=== PATIENT | male | born 1930 | race Caucasian/White ===

== ENCOUNTER 2017-02-07 10:13 | Inpatient (IN) | payer OTHER, BC ==
[2017-02-07 10:21] VITALS: BMI 20.3
[2017-02-07] MEDS ORDERED: ONDANSETRON 4 MG/2 ML VIAL IVPUSH ONE (11:20)
[2017-02-07] MEDS ORDERED: SODIUM CHLORIDE 1,000 ML IV STA ×2 (11:20→13:01)
[2017-02-07] MEDS ORDERED: FAMOTIDINE 20 MG/50 ML IVPB 50 ML IVPB ONE ×2 (11:20→11:27)
--- NOTE | 2017-02-07 11:20 | PDOC ---
History of Present Illness - General History Source: Patient Exam Limitations: No Limitations - History of Present Illness Initial Comments: 02/07/17 11:22 The patient is an 86-year-old man, accompanied by his daughter, with a significant past medical history of hypertension, hypercholesterolemia chronic GI issues including intermittent flare ups of nausea/vomiting syndrome since 2009 (had a normal endocsocpy in the past and colonoscopy that only revealed diverticulosis) who presents to the emergency department via walk in for persistent nausea and vomiting. Patient states that he has been unable to tolerate any foods by mouth for the past 2 days. He reports associated symptoms of intermittent abdominal pains and nausea. Patient states that he experienced this in the past (Aug 2015) where he was found to have a normal Abdominal/ Pelvis CT but was found to have an elevated lipase and was admitted for pancreatitis. No fever, chills, weakness. No chest pain, cough, shortness of breath. No changes in bowel habits. No urinary complaints. Allergies: No Known Drug Allergies Past Surgical History: Colonoscopy. Endoscopy. Social History: No tobacco, EtOH and recreational drug use. Primary Care Physician: Dr. Rudd [facility]. Dr. Carlos Evans <Jeanna Archer - Last Filed: 02/07/17 13:07> <Nallely Rivero - Last Filed: 02/07/17 16:02> - General Chief Complaint: Nausea/Vomiting Stated Complaint: VOMITING Time Seen by Provider: 02/07/17 10:58 Past History <Jeanna Archer - Last Filed: 02/07/17 13:07> - Past Medical History GI Disorders: Yes (DIVERTICULOSIS, FREQUENT N/V) HTN: Yes Hypercholesterolemia: Yes - Surgical History Abdominal Surgery: Yes (lt ing HERNIA REPAIR) Orthopedic Surgery: (2004 right ankle sx with screws) - Psycho/Social/Smoking Cessation Hx Anxiety: No Suicidal Ideation: No Smoking History: Never smoked Have you smoked in the past 12 months: No Information on smoking cessation initiated: No Hx Alcohol Use: No Drug/Substance Use Hx: No Substance Use Type: None Hx Substance Use Treatment: No <Nallely Rivero - Last Filed: 02/07/17 16:02> - Past Medical History Allergies/Adverse Reactions: Allergies Allergy/AdvReac Type Severity Reaction Status Date / Time No Known Allergies Allergy Verified 02/07/17 10:17 Home Medications: Ambulatory Orders Atenolol [Tenormin -] 50 mg PO DAILY 08/30/15 Cholecalciferol (Vitamin D3) [Vitamin D3] 1,000 unit PO DAILY 08/30/15 Cyanocobalamin (Vitamin B-12) [Vitamin B12] 1,000 mcg PO DAILY 08/30/15 Multivit-Min/FA/Lycopen/Lutein [Centrum Silver Tablet] 1 each PO DAILY 08/30/15 Quinapril HCl [Accupril -] 10 mg PO DAILY 08/30/15 Simvastatin [Zocor -] 20 mg PO HS 08/30/15 Ranitidine [Zantac -] 150 mg PO DAILY #30 tablet 09/04/15 Review of Systems - Review of Systems Able to Perform ROS?: Yes Comments:: 02/07/17 11:22 GENERAL/CONSTITUTIONAL: No fever or chills. No weakness. HEAD, EYES, EARS, NOSE AND THROAT: No change in vision. No ear pain or discharge. No sore throat. CARDIOVASCULAR: No chest pain or shortness of breath. RESPIRATORY: No cough, wheezing, or hemoptysis. GASTROINTESTINAL: Yes: Abdominal Pain. Nausea. Vomiting. No diarrhea or constipation. GENITOURINARY: No dysuria, frequency, or change in urination. MUSCULOSKELETAL: No joint or muscle swelling or pain. No neck or back pain. SKIN: No rash NEUROLOGIC: No headache, vertigo, loss of consciousness, or change in strength/ sensation. ENDOCRINE: No increased thirst. No abnormal weight change. HEMATOLOGIC/LYMPHATIC: No anemia, easy bleeding, or history of blood clots. ALLERGIC/IMMUNOLOGIC: No hives or skin allergy. <Jeanna Archer - Last Filed: 02/07/17 13:07> *Physical Exam - Vital Signs Last Vital Signs Temp Pulse Resp BP Pulse Ox 97.2 F L 73 18 101/60 100 02/07/17 10:18 02/07/17 10:18 02/07/17 10:18 02/07/17 10:18 02/07/17 10:18 - Physical Exam Comments: 02/07/17 11:23 GENERAL: Awake, alert, and fully oriented, in no acute distress HEAD: No signs of trauma EYES: PERRLA, EOMI, sclera anicteric, conjunctiva clear ENT: Auricles normal inspection, hearing grossly normal, nares patent, oropharynx clear without exudates. Dry mucosa NECK: Normal ROM, supple, no lymphadenopathy, JVD, or masses LUNGS: Breath sounds equal, clear to auscultation bilaterally. No wheezes, and no crackles HEART: Regular rate and rhythm, normal S1 and S2, no murmurs, rubs or gallops ABDOMEN: Soft, nontender, hyperactive bowel sounds. No guarding, no rebound. No masses EXTREMITIES: Normal range of motion, no edema. No clubbing or cyanosis. No cords, erythema, or tenderness NEUROLOGICAL: Cranial nerves II through XII grossly intact. Normal speech, normal gait <Jeanna Archer - Last Filed: 02/07/17 13:07> - Vital Signs Last Vital Signs Temp Pulse Resp BP Pulse Ox 97.2 F L 73 18 101/60 100 02/07/17 10:18 02/07/17 10:18 02/07/17 10:18 02/07/17 10:18 02/07/17 10:18 <Nallely Rivero - Last Filed: 02/07/17 16:02> ED Treatment Course - LABORATORY CBC & Chemistry Diagram: 02/07/17 11:20 02/07/17 11:20 <Jeanna Archer - Last Filed: 02/07/17 13:07> - LABORATORY CBC & Chemistry Diagram: 02/07/17 11:20 02/07/17 11:20 <Nallely Rivero - Last Filed: 02/07/17 16:02> Medical Decision Making - Medical Decision Making Pt with signs of dehydration on exam. No signs of acute abdomen. His symptoms improved with zofran and IV fluids. Labs showed acute renal failure, for which urine lytes are ordered. D/w Dr. Gauthier, will admit. Also d/w Dr. Garsia, who will evaluate. <Nallely Rivero - Last Filed: 02/07/17 16:02> *DC/Admit/Observation/Transfer - Attestations Scribe Attestion: 02/07/17 11:23 Documentation prepared by Jeanna Archer, acting as medical office clerk for Nallely Rivero MD. <Jeanna Archer - Last Filed: 02/07/17 13:07> - Discharge Dispostion Admit: Yes <Nallely Rivero - Last Filed: 02/07/17 16:02> Diagnosis at time of Disposition: Acute renal failure Qualifiers: Acute renal failure type: unspecified Qualified Code(s): N17.9 - Acute kidney failure, unspecified Vomiting Qualifiers: Vomiting type: unspecified Vomiting Intractability: non-intractable Nausea presence: with nausea Qualified Code(s): R11.2 - Nausea with vomiting, unspecified - Discharge Dispostion Condition at time of disposition: Stable
[2017-02-07] MEDS ORDERED: ONDANSETRON 4 MG/2 ML VIAL ONE ×2 (11:27→22:20)
[2017-02-07 11:32] LABS: BASOPHIL 0.3 % (0-2.0); EOSINOPHIL 0.2 % (0-4.5); MCH 30.8 pg (25.7-33.7); MCHC 33.1 g/dl (32.0-35.9); MEAN CELL VOLUME 93.1 fl (80-96); MEAN PLT VOLUME 7.3 fl (7.5-11.1); PLATELET COUNT 227 K/MM3 (134-434); RDW 14.1 % (11.9-15.9)
[2017-02-07 11:52] LABS: ALBUMIN 4.1 g/dl (3.4-5.0); BILIRUBIN,TOTAL 1.1 mg/dL (0.2-1.0); CALCIUM 9.9 mg/dL (8.5-10.1); COCKROFT - GAULT 15.01; TOT PROT 7.3 g/dl (6.4-8.2)
[2017-02-07] MEDS ORDERED: ONDANSETRON 4 MG/2 ML VIAL IVPB PRN (14:43)
[2017-02-07] MEDS ORDERED: oxyCODONE HCL 5 MG TABLET PO PRN (14:43)
[2017-02-07] MEDS ORDERED: ACETAMINOPHEN 325 MG TABLET (FP) PO PRN (14:43)
--- NOTE | 2017-02-07 14:46 | HP ---
Admitting History and Physical - Primary Care Physician PCP: Tobin Hatfield - Admission Chief Complaint: I was throwing up History of Present Illness: Mr Paez is a pleasant 86 year old male who comes in with nausea and vomiting that is currently resolved. He says he started having nausea and vomiting 3 days ago. He was unable to eat secondary to this but was able to drink. He says there was no coffee ground emesis or bright red blood, it was only liquid. He had severe abdominal pain when it came on that has now resolved. He says he was having normal bowel movements prior to this, but has stopped secondary to not eating. He denies sick contacts. He denies recent travel or eating spoiled food. He denies fevers, chills, lightheadedness, dizziness, passing out, chest pain, shortness of breath, difficulty or pain on urination, or swelling. Currently he says he is feeling fine and would prefer to go home. Daughter at bedside says he has been having abdominal pain. This pain is hard to characterize as he says it has been going on for years. He says that it comes and goes. He does not know what brings it on or what alleviates it. He currently is not having it. History Source: Patient Limitations to Obtaining History: No Limitations - Past Medical History Cardiovascular: Yes: HTN, Hyperlipdemia Gastrointestinal: Yes: Diverticulosis, GERD - Past Surgical History Past Surgical History: Yes: Hernia Repair (left inguinal hernia) - Smoking History Smoking history: Never smoked Have you smoked in the past 12 months: No - Alcohol/Substance Use Hx Alcohol Use: No History of Substance Use: reports: None - Social History Usual Living Arrangement: Yes: With Spouse ADL: Independent History of Recent Travel: No Home Medications - Allergies Allergies/Adverse Reactions: Allergies Allergy/AdvReac Type Severity Reaction Status Date / Time No Known Allergies Allergy Verified 02/07/17 10:17 - Home Medications Home Medications: Ambulatory Orders Atenolol [Tenormin -] 50 mg PO DAILY 08/30/15 Cholecalciferol (Vitamin D3) [Vitamin D3] 1,000 unit PO DAILY 08/30/15 Cyanocobalamin (Vitamin B-12) [Vitamin B12] 1,000 mcg PO DAILY 08/30/15 Multivit-Min/FA/Lycopen/Lutein [Centrum Silver Tablet] 1 each PO DAILY 08/30/15 Quinapril HCl [Accupril -] 10 mg PO DAILY 08/30/15 Simvastatin [Zocor -] 20 mg PO HS 08/30/15 Ranitidine [Zantac -] 150 mg PO DAILY #30 tablet 09/04/15 Family Disease History - Family Disease History Family Disease History: Heart Disease: Father Review of Systems Findings/Remarks: Full review of systems obtained, as per HPI and otherwise negative Physical Examination Vital Signs: Vital Signs Temperature 97.2 F L 02/07/17 10:18 Pulse Rate 73 02/07/17 10:18 Respiratory Rate 18 02/07/17 10:18 Blood Pressure 101/60 02/07/17 10:18 O2 Sat by Pulse Oximetry (%) 100 02/07/17 10:18 Constitutional: Yes: Well Nourished, No Distress, Calm Eyes: Yes: Conjunctiva Clear, EOM Intact, PERRL HENT: Yes: Atraumatic, Normocephalic Cardiovascular: Yes: Regular Rate and Rhythm. No: Gallop, Murmur, Rub Respiratory: Yes: Regular, CTA Bilaterally. No: Rales, Rhonchi, Wheezes Gastrointestinal: Yes: Normal Bowel Sounds, Soft. No: Distention, Tenderness Extremities: Yes: WNL Edema: No Labs: Laboratory Results - last 24 hr 02/08/17 02/08/17 02/08/17 06:35 06:35 09:25 WBC 7.8 RBC 4.16 Hgb 12.9 D Hct 38.7 MCV 92.9 MCHC 33.4 RDW 13.9 Plt Count 206 MPV 7.4 L Neutrophils % 80.3 Lymphocytes % 12.9 D Monocytes % 6.1 Eosinophils % 0.4 D Basophils % 0.3 Sodium 141 Potassium 4.6 Chloride 103 Carbon Dioxide 23 Anion Gap 15 BUN 42 H Creatinine 2.5 H Creat Clearance w eGFR 24.67 Random Glucose 104 Calcium 8.8 Phosphorus 3.1 D Magnesium 2.0 Total Bilirubin 1.1 H AST 24 ALT 22 Alkaline Phosphatase 86 Total Protein 6.2 L Albumin 3.6 Urine Color Urine Appearance Urine pH Urine Protein Urine Glucose (UA) Urine Ketones Urine Blood Urine Nitrite Urine Bilirubin Urine Urobilinogen Ur Leukocyte Esterase U Random Total Protein 23 H Ur Random Sodium 49 Ur Random Potassium 39.4 Ur Random Chloride 35 Urine Creatinine 201.0 02/08/17 02/08/17 09:42 09:42 WBC RBC Hgb Hct MCV MCHC RDW Plt Count MPV Neutrophils % Lymphocytes % Monocytes % Eosinophils % Basophils % Sodium Potassium Chloride Carbon Dioxide Anion Gap BUN Creatinine Creat Clearance w eGFR Random Glucose Calcium Phosphorus Magnesium Total Bilirubin AST ALT Alkaline Phosphatase Total Protein Albumin Urine Color Yellow Urine Appearance Clear Urine pH 5.0 Urine Protein Negative Cancelled Urine Glucose (UA) Negative Urine Ketones 1+ H Urine Blood Negative Urine Nitrite Negative Urine Bilirubin Negative Urine Urobilinogen Negative Ur Leukocyte Esterase Negative U Random Total Protein Ur Random Sodium Ur Random Potassium Ur Random Chloride Urine Creatinine Cancelled Imaging - Results X-ray: Pending Problem List - Problems (1) Acute renal failure Assessment/Plan: -secondary to vomiting and decreased intake -case d/w nephrology -admit to the hospital -hydrate with IVF -check urine lytes and renal ultrasound Code(s): N17.9 - ACUTE KIDNEY FAILURE, UNSPECIFIED Qualifiers: Acute renal failure type: unspecified Qualified Code(s): N17.9 - Acute kidney failure, unspecified (2) Vomiting Assessment/Plan: -also with sporadic abdominal pain -admit -hydrate -may be exacerbated by uremia -monitor for improvement Code(s): R11.10 - VOMITING, UNSPECIFIED Qualifiers: Vomiting type: unspecified Vomiting Intractability: non-intractable Nausea presence: with nausea Qualified Code(s): R11.2 - Nausea with vomiting, unspecified (3) Hyperlipidemia Assessment/Plan: -continue statin Code(s): E78.5 - HYPERLIPIDEMIA, UNSPECIFIED (4) Hypertension Assessment/Plan: -continue atenolol Code(s): I10 - ESSENTIAL (PRIMARY) HYPERTENSION
[2017-02-07] MEDS: SODIUM CHLORIDE 1,000 ML IV SCH (15:13)
--- NOTE | 2017-02-07 17:47 | CONSULT ---
Consult Consult Specialty:: Nephrology Reason for Consultation:: HUBER - History of Present Illness Chief Complaint: abdominal pain, nausea and vomiting History of Present Illness: Pt is an 86 year old male with pmhx of HTN, chol, and frequent bouts of nausea and vomiting who presents to the ER with abdominal pain that is associated with nausea and vomiting. He says that he has not been able to tolerated any food for the last 3 days. He has multiple episodes of vomiting. He did take his hypertensive meds every day. I was called to evaluate him for HUBER as he has elevated creatinine. He did have an episode of HUBER in the past when he had similar symptoms. He also was found to be hypotensive. He denies chest pain or palpitations. He is on an aparna inhibitor at home. He denies dysuria or hematuria. He denies nsaid use. - History Source History Provided By: Patient, Family Member, Medical Record - Past Medical History Cardio/Vascular: Yes: HTN, Hyperlipdemia Gastrointestinal: Yes: Diverticulosis, GERD - Past Surgical History Past Surgical History: Yes: Hernia Repair (left inguinal hernia) - Alcohol/Substance Use Hx Alcohol Use: No - Smoking History Smoking history: Never smoked Have you smoked in the past 12 months: No Home Medications - Allergies Allergies/Adverse Reactions: Allergies Allergy/AdvReac Type Severity Reaction Status Date / Time No Known Allergies Allergy Verified 02/07/17 10:17 - Home Medications Home Medications: Ambulatory Orders Atenolol [Tenormin -] 50 mg PO DAILY 08/30/15 Cholecalciferol (Vitamin D3) [Vitamin D3] 1,000 unit PO DAILY 08/30/15 Cyanocobalamin (Vitamin B-12) [Vitamin B12] 1,000 mcg PO DAILY 08/30/15 Multivit-Min/FA/Lycopen/Lutein [Centrum Silver Tablet] 1 each PO DAILY 08/30/15 Quinapril HCl [Accupril -] 10 mg PO DAILY 08/30/15 Simvastatin [Zocor -] 20 mg PO HS 08/30/15 Ranitidine [Zantac -] 150 mg PO DAILY #30 tablet 09/04/15 Family Disease History - Family Disease History Family Disease History: Other: Father (htn), Mother (htn), Brother (htn) Review of Systems - Review of Systems Constitutional: reports: Malaise Eyes: reports: No Symptoms HENT: reports: No Symptoms Neck: reports: No Symptoms Cardiovascular: reports: No Symptoms Respiratory: reports: No Symptoms Gastrointestinal: reports: Abdominal Pain, Vomiting Genitourinary: reports: No Symptoms Musculoskeletal: reports: No Symptoms Integumentary: reports: No Symptoms Neurological: reports: No Symptoms Endocrine: reports: No Symptoms Hematology/Lymphatic: reports: No Symptoms Psychiatric: reports: No Symptoms Physical Exam Vital Signs: Vital Signs Temperature 97.2 F L 02/07/17 10:18 Pulse Rate 73 02/07/17 10:18 Respiratory Rate 18 02/07/17 10:18 Blood Pressure 101/60 02/07/17 10:18 O2 Sat by Pulse Oximetry (%) 100 02/07/17 10:18 Constitutional: Yes: Calm Eyes: Yes: Conjunctiva Clear HENT: Yes: Atraumatic Neck: Yes: Supple Cardiovascular: Yes: S1, S2 Respiratory: Yes: CTA Bilaterally Gastrointestinal: Yes: Soft Extremities: Yes: WNL Edema: No Neurological: Yes: Oriented Psychiatric: Yes: Oriented Labs: Laboratory Tests 08/30/15 08/31/15 09/01/15 12:30 06:00 06:00 WBC Hgb Plt Count Sodium Potassium Chloride Carbon Dioxide Anion Gap BUN Creatinine 2.5 H 2.2 H 1.8 H Creat Clearance w eGFR Total Bilirubin AST ALT Alkaline Phosphatase Total Protein Albumin Lipase 09/02/15 09/04/15 02/07/17 07:30 08:25 11:20 WBC 8.0 D Hgb 14.7 D Plt Count 227 D Sodium Potassium Chloride Carbon Dioxide Anion Gap BUN Creatinine 1.4 H D 1.3 Creat Clearance w eGFR Total Bilirubin AST ALT Alkaline Phosphatase Total Protein Albumin Lipase 02/07/17 11:20 WBC Hgb Plt Count Sodium 136 Potassium 4.6 Chloride 95 L D Carbon Dioxide 25 Anion Gap 16 BUN 39 H D Creatinine 3.0 H D Creat Clearance w eGFR 19.99 Total Bilirubin 1.1 H D AST 30 D ALT 24 D Alkaline Phosphatase 98 D Total Protein 7.3 D Albumin 4.1 D Lipase 277 Problem List - Problems (1) Acute renal failure Code(s): N17.9 - ACUTE KIDNEY FAILURE, UNSPECIFIED Qualifiers: Acute renal failure type: unspecified Qualified Code(s): N17.9 - Acute kidney failure, unspecified (2) Vomiting Code(s): R11.10 - VOMITING, UNSPECIFIED Qualifiers: Vomiting type: unspecified Vomiting Intractability: non-intractable Nausea presence: with nausea Qualified Code(s): R11.2 - Nausea with vomiting, unspecified (3) Dehydration Code(s): E86.0 - DEHYDRATION (4) Hyperlipidemia Code(s): E78.5 - HYPERLIPIDEMIA, UNSPECIFIED (5) Hypertension Code(s): I10 - ESSENTIAL (PRIMARY) HYPERTENSION Assessment/Plan Current Medications Generic Name Dose Route Start Last Admin Trade Name Freq PRN Reason Stop Dose Admin Acetaminophen 650 mg 02/07/17 14:43 Tylenol - PO Q4H PRN FEVER OR PAIN Atenolol 50 mg 02/08/17 10:00 Tenormin - PO DAILY [facility] Atorvastatin Calcium 10 mg 02/07/17 22:00 Lipitor - PO HS [facility] Cholecalciferol 1,000 unit 02/08/17 10:00 Vitamin D3 - PO DAILY [facility] Cyanocobalamin 1,000 mcg 02/08/17 10:00 Vitamin B12 - PO DAILY [facility] Sodium Chloride 1,000 mls @ 75 mls/hr 02/07/17 14:45 02/07/17 15:13 Normal Saline - IV 75 mls/hr ASDIR [facility] Administration Multivitamins/Minerals 1 each 02/08/17 10:00 Theragran-M PO DAILY [facility] Ondansetron HCl 4 mg 02/07/17 14:43 Zofran Injection IVPB Q6H PRN NAUSEA Oxycodone HCl 5 mg 02/07/17 14:43 Roxicodone - PO Q4H PRN PAIN Ranitidine HCl 150 mg 02/08/17 10:00 Zantac - PO DAILY [facility] Impression 1. HUBER 2. abdominal pain 3. nausea and vomiting 4. HTN however pt is now hypotensive 5. hyperlipidemia Plan - hold quinapril for now as he is hypotensive and in HUBER - will check ua, electrolytes and creatinine - start saline - get cxr - get abd x-ray - repeat labs in am - monitor blood pressure - likely etiology of HUBER is from pre-renal disease - will follow Dr Garsia
[2017-02-07] MEDS ORDERED: PATIENT'S OWN MEDICATION (NON-FORMULARY) (Simvastatin 20 MG) PO SCH (22:00)
[2017-02-07] MEDS ORDERED: morphine CARPU-JECT 2 MG/1 ML DISP.SYRIN IVPUSH ONE (22:18)
[2017-02-07] MEDS ORDERED: morphine CARPU-JECT 2 MG/1 ML DISP.SYRIN ONE (22:20)
[2017-02-07] MEDS: ATORVASTATIN CA 10 MG TABLET (FP) PO SCH (22:30)
--- NOTE | 2017-02-07 23:13 | PN ---
Progress Note (short form) - Note Progress Note: Nephrology Follow up CXR and abd x-ray reports reviewed. There is no acute disease. Continue with fluids and monitor closely. Will follow Dr Garsia Problem List - Problems (1) Acute renal failure Code(s): N17.9 - ACUTE KIDNEY FAILURE, UNSPECIFIED Qualifiers: Acute renal failure type: unspecified Qualified Code(s): N17.9 - Acute kidney failure, unspecified (2) Vomiting Code(s): R11.10 - VOMITING, UNSPECIFIED Qualifiers: Vomiting type: unspecified Vomiting Intractability: non-intractable Nausea presence: with nausea Qualified Code(s): R11.2 - Nausea with vomiting, unspecified (3) Dehydration Code(s): E86.0 - DEHYDRATION (4) Hyperlipidemia Code(s): E78.5 - HYPERLIPIDEMIA, UNSPECIFIED (5) Hypertension Code(s): I10 - ESSENTIAL (PRIMARY) HYPERTENSION
[2017-02-08] MEDS: SODIUM CHLORIDE 1,000 ML IV SCH (02:00)
[2017-02-08 07:55] LABS: BASOPHIL 0.3 % (0-2.0); EOSINOPHIL 0.4 % (0-4.5); MCHC 33.4 g/dl (32.0-35.9); MEAN CELL VOLUME 92.9 fl (80-96); MEAN PLT VOLUME 7.4 fl (7.5-11.1); NEUTROPHILS 80.3 % (42.8-82.8); PLATELET COUNT 206 K/MM3 (134-434); RDW 13.9 % (11.9-15.9); WHITE BLOOD COUNT 7.8 K/mm3 (4.0-10.0)
[2017-02-08 08:18] LABS: ALBUMIN 3.6 g/dl (3.4-5.0); CALCIUM 8.8 mg/dL (8.5-10.1)
[2017-02-08 08:22] LABS: BILIRUBIN,TOTAL 1.1 mg/dL (0.2-1.0); COCKROFT - GAULT 16.77; CREATININE 2.5 mg/dL (0.7-1.3); PHOSPHOROUS 3.1 mg/dL (2.5-4.9); TOT PROT 6.2 g/dl (6.4-8.2)
[2017-02-08] MEDS: CYANOCOBALAMIN 1,000 MCG TABLET (FP) PO SCH (09:18)
[2017-02-08] MEDS: ATENOLOL 50 MG TABLET (FP) PO SCH (09:18)
[2017-02-08] MEDS: CHOLECALCIFEROL (VITAMIN D3) 1,000 UNIT TABLET (FP) PO SCH (09:18)
[2017-02-08] MEDS: RANITIDINE HCL 150 MG TABLET (FP) PO SCH (09:18)
[2017-02-08] MEDS: MULTIVITAMINS THER W-MINERALS COMBO TABLET (FP) PO SCH (09:18)
[2017-02-08] MEDS ORDERED: CYANOCOBALAMIN PO SCH (10:00)
[2017-02-08] MEDS ORDERED: [UNRECOGNIZED DRUG - OTHER] PO SCH (10:00)
[2017-02-08 10:16] LABS: URINE APPEARANCE CLEAR; URINE BILIRUBIN NEGATIVE (NEGATIVE); URINE BLOOD NEGATIVE (NEGATIVE); URINE COLOR YELLOW; URINE GLUCOSE (UA) NEGATIVE (NEGATIVE); URINE KETONE 1+ (NEGATIVE); URINE LEUK ESTERASE NEGATIVE (NEGATIVE); URINE NITRITE NEGATIVE (NEGATIVE); URINE PROTEIN NEGATIVE (NEGATIVE); URINE UROBILINOGEN NEGATIVE E.U./dl (0.2-1.0)
--- NOTE | 2017-02-08 10:52 | EKG ---
Test Reason : Blood Pressure : / mmHG Vent. Rate : 064 BPM Atrial Rate : 064 BPM P-R Int : 162 ms QRS Dur : 084 ms QT Int : 480 ms P-R-T Axes : 075 -09 059 degrees QTc Int : 495 ms NORMAL SINUS RHYTHM PROLONGED QT ABNORMAL ECG WHEN COMPARED WITH ECG OF 30-AUG-2015 13:30, NO SIGNIFICANT CHANGE WAS FOUND Confirmed by TRESA HARDING MD ([id number]) on 02/08/2017 10:51:41 AM Referred By: Confirmed By:TRESA HARDING MD
--- NOTE | 2017-02-08 14:54 | PN ---
Progress Note, Physician Chief Complaint: Mr Paez says he is still having nausea/vomiting. No cp or sob. - Current Medication List Current Medications: Active Medications Acetaminophen (Tylenol -) 650 mg PO Q4H PRN PRN Reason: FEVER OR PAIN Atenolol (Tenormin -) 50 mg PO DAILY [facility] Last Admin: 02/08/17 09:18 Dose: 50 mg Atorvastatin Calcium (Lipitor -) 10 mg PO HS [facility] Last Admin: 02/07/17 22:30 Dose: Not Given Cholecalciferol (Vitamin D3 -) 1,000 unit PO DAILY [facility] Last Admin: 02/08/17 09:18 Dose: 1,000 unit Cyanocobalamin (Vitamin B12 -) 1,000 mcg PO DAILY [facility] Last Admin: 02/08/17 09:18 Dose: 1,000 mcg Sodium Chloride (Normal Saline -) 1,000 mls @ 75 mls/hr IV ASDIR [facility] Last Admin: 02/08/17 02:00 Dose: 75 mls/hr Multivitamins/Minerals (Theragran-M) 1 each PO DAILY [facility] Last Admin: 02/08/17 09:18 Dose: 1 each Ondansetron HCl (Zofran Injection) 4 mg IVPB Q6H PRN PRN Reason: NAUSEA Last Admin: 02/07/17 22:28 Dose: 4 mg Oxycodone HCl (Roxicodone -) 5 mg PO Q4H PRN PRN Reason: PAIN Ranitidine HCl (Zantac -) 150 mg PO DAILY [facility] Last Admin: 02/08/17 09:18 Dose: 150 mg - Objective Vital Signs: Vital Signs Temperature 98.0 F 02/08/17 14:14 Pulse Rate 66 02/08/17 14:14 Respiratory Rate 18 02/08/17 14:14 Blood Pressure 132/74 02/08/17 14:14 O2 Sat by Pulse Oximetry (%) 98 02/08/17 09:00 Constitutional: Yes: No Distress, Calm, Thin Cardiovascular: Yes: Regular Rate and Rhythm. No: Gallop, Murmur, Rub Respiratory: Yes: Regular, CTA Bilaterally. No: Rales, Rhonchi, Wheezes Gastrointestinal: Yes: Normal Bowel Sounds, Soft. No: Distention, Tenderness Extremities: Yes: WNL Edema: No Labs: CBC, BMP 02/08/17 06:35 02/08/17 06:35 Problem List - Problems (1) Acute renal failure Code(s): N17.9 - ACUTE KIDNEY FAILURE, UNSPECIFIED Qualifiers: Acute renal failure type: unspecified Qualified Code(s): N17.9 - Acute kidney failure, unspecified (2) Vomiting Code(s): R11.10 - VOMITING, UNSPECIFIED Qualifiers: Vomiting type: unspecified Vomiting Intractability: non-intractable Nausea presence: with nausea Qualified Code(s): R11.2 - Nausea with vomiting, unspecified (3) Hyperlipidemia Code(s): E78.5 - HYPERLIPIDEMIA, UNSPECIFIED (4) Hypertension Code(s): I10 - ESSENTIAL (PRIMARY) HYPERTENSION Assessment/Plan (1) Acute renal failure Assessment/Plan: -nephrology following -continue hydration -secondary to dehydration Code(s): N17.9 - ACUTE KIDNEY FAILURE, UNSPECIFIED Qualifiers: Acute renal failure type: unspecified Qualified Code(s): N17.9 - Acute kidney failure, unspecified (2) Vomiting Assessment/Plan: -currently not having pain -however nausea/vomiting not resolved -may be secondary to uremia -however spoke with Dr Hatfield and patient has been having this issue for some time and unable to work up as an outpatient -consult GI -? gastroparesis Code(s): R11.10 - VOMITING, UNSPECIFIED Qualifiers: Vomiting type: unspecified Vomiting Intractability: non-intractable Nausea presence: with nausea Qualified Code(s): R11.2 - Nausea with vomiting, unspecified (3) Hyperlipidemia Assessment/Plan: -continue statin Code(s): E78.5 - HYPERLIPIDEMIA, UNSPECIFIED (4) Hypertension Assessment/Plan: -continue atenolol Code(s): I10 - ESSENTIAL (PRIMARY) HYPERTENSION
--- NOTE | 2017-02-08 17:29 | PN ---
Progress Note, Physician History of Present Illness: Pt seen and examined at bedside. He is awake and alert. He complains of nausea and vomiting. - Current Medication List Current Medications: Active Medications Acetaminophen (Tylenol -) 650 mg PO Q4H PRN PRN Reason: FEVER OR PAIN Atenolol (Tenormin -) 50 mg PO DAILY [facility] Last Admin: 02/08/17 09:18 Dose: 50 mg Atorvastatin Calcium (Lipitor -) 10 mg PO HS [facility] Last Admin: 02/07/17 22:30 Dose: Not Given Cholecalciferol (Vitamin D3 -) 1,000 unit PO DAILY [facility] Last Admin: 02/08/17 09:18 Dose: 1,000 unit Cyanocobalamin (Vitamin B12 -) 1,000 mcg PO DAILY [facility] Last Admin: 02/08/17 09:18 Dose: 1,000 mcg Sodium Chloride (Normal Saline -) 1,000 mls @ 75 mls/hr IV ASDIR [facility] Last Admin: 02/08/17 02:00 Dose: 75 mls/hr Multivitamins/Minerals (Theragran-M) 1 each PO DAILY [facility] Last Admin: 02/08/17 09:18 Dose: 1 each Ondansetron HCl (Zofran Injection) 4 mg IVPB Q6H PRN PRN Reason: NAUSEA Last Admin: 02/07/17 22:28 Dose: 4 mg Oxycodone HCl (Roxicodone -) 5 mg PO Q4H PRN PRN Reason: PAIN Ranitidine HCl (Zantac -) 150 mg PO DAILY [facility] Last Admin: 02/08/17 09:18 Dose: 150 mg - Objective Vital Signs: Vital Signs Temperature 98.0 F 02/08/17 14:14 Pulse Rate 66 02/08/17 14:14 Respiratory Rate 18 02/08/17 14:14 Blood Pressure 132/74 02/08/17 14:14 O2 Sat by Pulse Oximetry (%) 98 02/08/17 09:00 Constitutional: Yes: Calm Eyes: Yes: Conjunctiva Clear HENT: Yes: Atraumatic Neck: Yes: Supple Cardiovascular: Yes: S1, S2 Respiratory: Yes: CTA Bilaterally Gastrointestinal: Yes: Soft Genitourinary: Yes: WNL Musculoskeletal: Yes: WNL Edema: No Neurological: Yes: Oriented Psychiatric: Yes: Oriented Labs: CBC, BMP 02/08/17 06:35 02/08/17 06:35 Problem List - Problems (1) Acute renal failure Code(s): N17.9 - ACUTE KIDNEY FAILURE, UNSPECIFIED Qualifiers: Acute renal failure type: unspecified Qualified Code(s): N17.9 - Acute kidney failure, unspecified (2) Vomiting Code(s): R11.10 - VOMITING, UNSPECIFIED Qualifiers: Vomiting type: unspecified Vomiting Intractability: non-intractable Nausea presence: with nausea Qualified Code(s): R11.2 - Nausea with vomiting, unspecified (3) Dehydration Code(s): E86.0 - DEHYDRATION (4) Hyperlipidemia Code(s): E78.5 - HYPERLIPIDEMIA, UNSPECIFIED (5) Hypertension Code(s): I10 - ESSENTIAL (PRIMARY) HYPERTENSION Assessment/Plan Current Medications Generic Name Dose Route Start Last Admin Trade Name Freq PRN Reason Stop Dose Admin Acetaminophen 650 mg 02/07/17 14:43 Tylenol - PO Q4H PRN FEVER OR PAIN Atenolol 50 mg 02/08/17 10:00 02/08/17 09:18 Tenormin - PO 50 mg DAILY [facility] Administration Atorvastatin Calcium 10 mg 02/07/17 22:00 02/07/17 22:30 Lipitor - PO Not Given HS [facility]ICAELA Cholecalciferol 1,000 unit 02/08/17 10:00 02/08/17 09:18 Vitamin D3 - PO 1,000 unit DAILY [facility] Administration Cyanocobalamin 1,000 mcg 02/08/17 10:00 02/08/17 09:18 Vitamin B12 - PO 1,000 mcg DAILY [facility] Administration Sodium Chloride 1,000 mls @ 75 mls/hr 02/07/17 14:45 02/08/17 02:00 Normal Saline - IV 75 mls/hr ASDIR [facility] Administration Multivitamins/Minerals 1 each 02/08/17 10:00 02/08/17 09:18 Theragran-M PO 1 each DAILY [facility] Administration Ondansetron HCl 4 mg 02/07/17 14:43 02/07/17 22:28 Zofran Injection IVPB 4 mg Q6H PRN Administration NAUSEA Oxycodone HCl 5 mg 02/07/17 14:43 Roxicodone - PO Q4H PRN PAIN Ranitidine HCl 150 mg 02/08/17 10:00 02/08/17 09:18 Zantac - PO 150 mg DAILY [facility] Administration Impression 1. HUBER 2. abdominal pain 3. nausea and vomiting 4. HTN however pt is now hypotensive 5. hyperlipidemia Plan - renal function is starting to improve - blood pressure is improved - cont with saline - repeat labs in am - will keep aparna on hold for now - likely etiology of HUBER is from pre-renal disease - will follow Dr Garsia
--- NOTE | 2017-02-08 20:11 | CON.GI ---
Consult Consult Specialty:: GI Referred by:: Dr. Gauthier Reason for Consultation:: Nausea, vomiting, diarrhea - History of Present Illness Chief Complaint: I was nauseaous and vomiting from tuesday History of Present Illness: 86M admitted for evaluation of N/V from this past tuesday. He says abdominal cramping and pain was noted at times during these episodes. He denies fevers, chills, recent weight loss, rectal bleeding, melena, recent antibiotic use, recent travel, change in dietary habits or sick contacts. Today while in the hospital copious diarrhea developed as well. He currently denies abdominal pain. He describes a similar episode in 09/13. he was evaluated by Dr. Coleman at that time. Small bowel series rebvealed multipl large diverticula throughout the small bowel, particularly in the jejunum but otherwise there was no bowel obstruction. he also describes following with Dr. Evans and having EGD and colonoscopy performed for evaluation of this complaint. He says that he was told of diverticvulosis. No vomiiting from this morning. 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 Place of : [facility] History of Recent Travel: No Home Medications - Allergies Allergies/Adverse Reactions: Allergies Allergy/AdvReac Type Severity Reaction Status Date / Time No Known Allergies Allergy Verified 02/07/17 10:17 - Home Medications Home Medications: Ambulatory Orders Atenolol [Tenormin -] 50 mg PO DAILY 08/30/15 Cholecalciferol (Vitamin D3) [Vitamin D3] 1,000 unit PO DAILY 08/30/15 Cyanocobalamin (Vitamin B-12) [Vitamin B12] 1,000 mcg PO DAILY 08/30/15 Multivit-Min/FA/Lycopen/Lutein [Centrum Silver Tablet] 1 each PO DAILY 08/30/15 Quinapril HCl [Accupril -] 10 mg PO DAILY 08/30/15 Simvastatin [Zocor -] 20 mg PO HS 08/30/15 Ranitidine [Zantac -] 150 mg PO DAILY #30 tablet 09/04/15 Family Disease History - Family Disease History Family Disease History: Heart Disease: Father ( 70's hodgkin's lymphoma), [place] : Father, Other: Mother ( 70's: MS), Brother (4 bros: 2 from MS, 2 from dementia comps) Other Family History: no family history of colorectal cancer or other GI malignancy Review of Systems - Review of Systems Constitutional: denies: Chills, Fever Cardiovascular: denies: Chest Pain Respiratory: denies: Cough, SOB Gastrointestinal: reports: Abdominal Pain (none currently), Diarrhea (started today), Vomiting (none since morning). denies: Constipation, Melena, Rectal Bleeding Physical Exam-GI Vital Signs: Vital Signs Temperature 98.0 F 02/08/17 14:14 Pulse Rate 66 02/08/17 14:14 Respiratory Rate 18 02/08/17 14:14 Blood Pressure 132/74 02/08/17 14:14 O2 Sat by Pulse Oximetry (%) 98 02/08/17 09:00 Constitutional: Yes: Calm Eyes: No: Sclera Icterus Cardiovascular: Yes: Regular Rate and Rhythm. No: Murmur Respiratory: Yes: CTA Bilaterally Gastrointestinal Inspection: No: Distention, Scars ...Auscultate: Yes: Normoactive Bowel Sounds ...Palpate: No: Hepatomegaly, Splenomegaly, Tenderness ...Percussion: No: Tympanitic ...Rectal Exam: Yes: Guaiac Negative (yellow stool, 2+ prostate) Edema: No Neurological: Yes: Alert, Oriented Labs: CBC, BMP 02/08/17 06:35 02/08/17 06:35 Imaging - Results X-ray: Report Reviewed Problem List - Problems (1) Vomiting Assessment/Plan: ? AGE, particularly with development of diarrhea No current vomiting CT scan of the abdomen and pelvis with PO contrast After CT Advance to full liquids if tolerating PO and if tolerating aadvance to low residue Code(s): R11.10 - VOMITING, UNSPECIFIED Qualifiers: Vomiting type: unspecified Vomiting Intractability: non-intractable Nausea presence: with nausea Qualified Code(s): R11.2 - Nausea with vomiting, unspecified (2) Diarrhea Assessment/Plan: Stool for O&P, culture, C. Diff, Norovirus, fasting serum gastrin level Monitor lytes Code(s): R19.7 - DIARRHEA, UNSPECIFIED
[2017-02-08] MEDS: ATORVASTATIN CA 10 MG TABLET (FP) PO SCH (21:29)
[2017-02-09] MEDS: SODIUM CHLORIDE 1,000 ML IV SCH (04:48)
[2017-02-09] MEDS: MULTIVITAMINS THER W-MINERALS COMBO TABLET (FP) PO SCH (11:35)
[2017-02-09] MEDS: CHOLECALCIFEROL (VITAMIN D3) 1,000 UNIT TABLET (FP) PO SCH (11:36)
[2017-02-09] MEDS: RANITIDINE HCL 150 MG TABLET (FP) PO SCH (11:36)
[2017-02-09] MEDS: CYANOCOBALAMIN 1,000 MCG TABLET (FP) PO SCH (11:36)
[2017-02-09] MEDS: ATENOLOL 50 MG TABLET (FP) PO SCH (11:38)
[2017-02-09 12:31] LABS: CALCIUM 8.4 mg/dL (8.5-10.1); COCKROFT - GAULT 24.66; CREATININE 1.7 mg/dL (0.7-1.3)
--- NOTE | 2017-02-09 15:37 | PN ---
Progress Note, Physician Chief Complaint: Mr Paez complains of hiccups. Says nausea/vomiting/abdominal pain resolved. No cp or sob. - Current Medication List Current Medications: Active Medications Acetaminophen (Tylenol -) 650 mg PO Q4H PRN PRN Reason: FEVER OR PAIN Atenolol (Tenormin -) 50 mg PO DAILY [facility] Last Admin: 02/09/17 11:38 Dose: 50 mg Atorvastatin Calcium (Lipitor -) 10 mg PO HS [facility] Last Admin: 02/08/17 21:29 Dose: 10 mg Cholecalciferol (Vitamin D3 -) 1,000 unit PO DAILY [facility] Last Admin: 02/09/17 11:36 Dose: 1,000 unit Cyanocobalamin (Vitamin B12 -) 1,000 mcg PO DAILY [facility] Last Admin: 02/09/17 11:36 Dose: 1,000 mcg Sodium Chloride (Normal Saline -) 1,000 mls @ 75 mls/hr IV ASDIR [facility] Last Admin: 02/09/17 04:48 Dose: 75 mls/hr Multivitamins/Minerals (Theragran-M) 1 each PO DAILY [facility] Last Admin: 02/09/17 11:35 Dose: 1 each Ondansetron HCl (Zofran Injection) 4 mg IVPB Q6H PRN PRN Reason: NAUSEA Last Admin: 02/07/17 22:28 Dose: 4 mg Oxycodone HCl (Roxicodone -) 5 mg PO Q4H PRN PRN Reason: PAIN Ranitidine HCl (Zantac -) 150 mg PO DAILY [facility] Last Admin: 02/09/17 11:36 Dose: 150 mg - Objective Vital Signs: Vital Signs Temperature 97.7 F 02/09/17 14:15 Pulse Rate 71 02/09/17 14:15 Respiratory Rate 20 02/09/17 09:00 Blood Pressure 107/70 02/09/17 14:15 O2 Sat by Pulse Oximetry (%) 98 02/08/17 09:00 Constitutional: Yes: No Distress, Calm, Thin Cardiovascular: Yes: Regular Rate and Rhythm. No: Gallop, Murmur, Rub Respiratory: Yes: Regular, CTA Bilaterally. No: Rales, Rhonchi, Wheezes Gastrointestinal: Yes: Normal Bowel Sounds, Soft. No: Distention, Tenderness Extremities: Yes: WNL Edema: No Labs: CBC, BMP 02/08/17 06:35 02/09/17 11:45 Problem List - Problems (1) Acute renal failure Code(s): N17.9 - ACUTE KIDNEY FAILURE, UNSPECIFIED Qualifiers: Acute renal failure type: unspecified Qualified Code(s): N17.9 - Acute kidney failure, unspecified (2) Vomiting Code(s): R11.10 - VOMITING, UNSPECIFIED Qualifiers: Vomiting type: unspecified Vomiting Intractability: non-intractable Nausea presence: with nausea Qualified Code(s): R11.2 - Nausea with vomiting, unspecified (3) Hyperlipidemia Code(s): E78.5 - HYPERLIPIDEMIA, UNSPECIFIED (4) Hypertension Code(s): I10 - ESSENTIAL (PRIMARY) HYPERTENSION (5) Diarrhea Code(s): R19.7 - DIARRHEA, UNSPECIFIED Assessment/Plan (1) Acute renal failure Assessment/Plan: -nephrology following -continue hydration -improving Code(s): N17.9 - ACUTE KIDNEY FAILURE, UNSPECIFIED Qualifiers: Acute renal failure type: unspecified Qualified Code(s): N17.9 - Acute kidney failure, unspecified (2) Vomiting Assessment/Plan: -GI consulted -CT scan with po contrast ordered -will also order GES -patient was recommended to this in the past but did not follow through -currently resolved Code(s): R11.10 - VOMITING, UNSPECIFIED Qualifiers: Vomiting type: unspecified Vomiting Intractability: non-intractable Nausea presence: with nausea Qualified Code(s): R11.2 - Nausea with vomiting, unspecified (3) Hyperlipidemia Assessment/Plan: -continue statin Code(s): E78.5 - HYPERLIPIDEMIA, UNSPECIFIED (4) Hypertension Assessment/Plan: -continue atenolol Code(s): I10 - ESSENTIAL (PRIMARY) HYPERTENSION (5) Diarrhea -c. diff antibody positive -flagyl started
--- NOTE | 2017-02-09 16:50 | PN ---
Progress Note (short form) - Note Progress Note: C. Diff Ab +. In setting of diarrhea, will start flagyl 500mg PO TID and ordered C. Diff Toxin PCR Problem List - Problems (1) Vomiting Code(s): R11.10 - VOMITING, UNSPECIFIED Qualifiers: Vomiting type: unspecified Vomiting Intractability: non-intractable Nausea presence: with nausea Qualified Code(s): R11.2 - Nausea with vomiting, unspecified (2) Diarrhea Code(s): R19.7 - DIARRHEA, UNSPECIFIED
--- NOTE | 2017-02-09 18:04 | PN ---
Progress Note, Physician History of Present Illness: Pt seen and examined at bedside. He is awake and alert. He says the abdominal pain is better today. He still has poor intake. - Current Medication List Current Medications: Active Medications Acetaminophen (Tylenol -) 650 mg PO Q4H PRN PRN Reason: FEVER OR PAIN Atenolol (Tenormin -) 50 mg PO DAILY [facility] Last Admin: 02/09/17 11:38 Dose: 50 mg Atorvastatin Calcium (Lipitor -) 10 mg PO HS [facility] Last Admin: 02/08/17 21:29 Dose: 10 mg Cholecalciferol (Vitamin D3 -) 1,000 unit PO DAILY [facility] Last Admin: 02/09/17 11:36 Dose: 1,000 unit Cyanocobalamin (Vitamin B12 -) 1,000 mcg PO DAILY [facility] Last Admin: 02/09/17 11:36 Dose: 1,000 mcg Sodium Chloride (Normal Saline -) 1,000 mls @ 75 mls/hr IV ASDIR [facility] Last Admin: 02/09/17 04:48 Dose: 75 mls/hr Metronidazole (Flagyl -) 500 mg PO TID [facility] Multivitamins/Minerals (Theragran-M) 1 each PO DAILY [facility] Last Admin: 02/09/17 11:35 Dose: 1 each Ondansetron HCl (Zofran Injection) 4 mg IVPB Q6H PRN PRN Reason: NAUSEA Last Admin: 02/07/17 22:28 Dose: 4 mg Oxycodone HCl (Roxicodone -) 5 mg PO Q4H PRN PRN Reason: PAIN Ranitidine HCl (Zantac -) 150 mg PO DAILY [facility] Last Admin: 02/09/17 11:36 Dose: 150 mg - Objective Vital Signs: Vital Signs Temperature 97.7 F 02/09/17 14:15 Pulse Rate 71 02/09/17 14:15 Respiratory Rate 20 02/09/17 09:00 Blood Pressure 107/70 02/09/17 14:15 O2 Sat by Pulse Oximetry (%) 98 02/08/17 09:00 Constitutional: Yes: Calm Eyes: Yes: Conjunctiva Clear HENT: Yes: Atraumatic Neck: Yes: Supple Cardiovascular: Yes: S1, S2 Respiratory: Yes: CTA Bilaterally Gastrointestinal: Yes: Normal Bowel Sounds, Soft ...Rectal Exam: Yes: Sphincter Tone Normal Musculoskeletal: Yes: WNL Edema: No Neurological: Yes: Oriented Psychiatric: Yes: Oriented Labs: CBC, BMP 02/08/17 06:35 02/09/17 11:45 Problem List - Problems (1) Acute renal failure Code(s): N17.9 - ACUTE KIDNEY FAILURE, UNSPECIFIED Qualifiers: Acute renal failure type: unspecified Qualified Code(s): N17.9 - Acute kidney failure, unspecified (2) Vomiting Code(s): R11.10 - VOMITING, UNSPECIFIED Qualifiers: Vomiting type: unspecified Vomiting Intractability: non-intractable Nausea presence: with nausea Qualified Code(s): R11.2 - Nausea with vomiting, unspecified (3) Dehydration Code(s): E86.0 - DEHYDRATION (4) Hyperlipidemia Code(s): E78.5 - HYPERLIPIDEMIA, UNSPECIFIED (5) Hypertension Code(s): I10 - ESSENTIAL (PRIMARY) HYPERTENSION Assessment/Plan Current Medications Generic Name Dose Route Start Last Admin Trade Name Freq PRN Reason Stop Dose Admin Acetaminophen 650 mg 02/07/17 14:43 Tylenol - PO Q4H PRN FEVER OR PAIN Atenolol 50 mg 02/08/17 10:00 02/09/17 11:38 Tenormin - PO 50 mg DAILY [facility]ICA[facility]A Administration Atorvastatin Calcium 10 mg 02/07/17 22:00 02/08/17 21:29 Lipitor - PO 10 mg HS MICAELA Administration Cholecalciferol 1,000 unit 02/08/17 10:00 02/09/17 11:36 Vitamin D3 - PO 1,000 unit DAILY [facility]A Administration Cyanocobalamin 1,000 mcg 02/08/17 10:00 02/09/17 11:36 Vitamin B12 - PO 1,000 mcg DAILY [facility]A Administration Sodium Chloride 1,000 mls @ 75 mls/hr 02/07/17 14:45 02/09/17 04:48 Normal Saline - IV 75 mls/hr ASDIR MICAELA Administration Metronidazole 500 mg 02/09/17 22:00 Flagyl - PO TID [facility] Multivitamins/Minerals 1 each 02/08/17 10:00 02/09/17 11:35 Theragran-M PO 1 each DAILY [facility] Administration Ondansetron HCl 4 mg 02/07/17 14:43 02/07/17 22:28 Zofran Injection IVPB 4 mg Q6H PRN Administration NAUSEA Oxycodone HCl 5 mg 02/07/17 14:43 Roxicodone - PO Q4H PRN PAIN Ranitidine HCl 150 mg 02/08/17 10:00 02/09/17 11:36 Zantac - PO 150 mg DAILY [facility] Administration Impression 1. HUBER 2. abdominal pain 3. nausea and vomiting 4. HTN however pt is now hypotensive 5. hyperlipidemia 6. c.diff Plan - renal function is stabilizing - cont fluids - GI input appreciated - repeat labs in am - will keep [place] on hold for now and wait for renal function to improve further - blood pressure is improving - likely etiology of HUBER is from pre-renal disease - will follow Dr Garsia
[2017-02-09] MEDS ORDERED: PT OWN MED DRAWER 7, Y5N ONE (18:58)
[2017-02-09] MEDS: metroNIDAZOLE 250 MG TABLET PO SCH (22:00)
[2017-02-09] MEDS: ATORVASTATIN CA 10 MG TABLET (FP) PO SCH (22:00)
[2017-02-10] MEDS: SODIUM CHLORIDE 1,000 ML IV SCH ×2 (01:55→18:48)
[2017-02-10] MEDS: metroNIDAZOLE 250 MG TABLET PO SCH ×3 (05:28→21:32)
[2017-02-10 07:16] LABS: BASOPHIL 0.2 % (0-2.0); EOSINOPHIL 1.4 % (0-4.5); MCHC 33.3 g/dl (32.0-35.9); MEAN CELL VOLUME 93.1 fl (80-96); MEAN PLT VOLUME 7.8 fl (7.5-11.1); NEUTROPHILS 79.8 % (42.8-82.8); PLATELET COUNT 127 K/MM3 (134-434); RDW 13.5 % (11.9-15.9); WHITE BLOOD COUNT 6.4 K/mm3 (4.0-10.0)
[2017-02-10 07:49] LABS: MAGNESIUM 1.8 mg/dL (1.8-2.4)
[2017-02-10 07:51] LABS: COCKROFT - GAULT 27.95; CREATININE 1.5 mg/dL (0.7-1.3); PHOSPHOROUS 1.9 mg/dL (2.5-4.9)
[2017-02-10] MEDS: ATENOLOL 50 MG TABLET (FP) PO SCH ×2 (10:32→11:31)
[2017-02-10] MEDS: MULTIVITAMINS THER W-MINERALS COMBO TABLET (FP) PO SCH ×2 (10:32→11:32)
[2017-02-10] MEDS: RANITIDINE HCL 150 MG TABLET (FP) PO SCH ×2 (10:32→11:32)
[2017-02-10] MEDS: CHOLECALCIFEROL (VITAMIN D3) 1,000 UNIT TABLET (FP) PO SCH ×2 (10:32→11:32)
[2017-02-10] MEDS: CYANOCOBALAMIN 1,000 MCG TABLET (FP) PO SCH ×2 (10:32→11:32)
--- NOTE | 2017-02-10 16:57 | PN ---
Progress Note, Physician History of Present Illness: Pt seen and examined at bedside. He is tolerating clears. He feels that the abdominal pain is improved. - Current Medication List Current Medications: Active Medications Acetaminophen (Tylenol -) 650 mg PO Q4H PRN PRN Reason: FEVER OR PAIN Atenolol (Tenormin -) 50 mg PO DAILY [facility] Last Admin: 02/10/17 11:31 Dose: 50 mg Atorvastatin Calcium (Lipitor -) 10 mg PO HS [facility] Last Admin: 02/09/17 22:00 Dose: 10 mg Cholecalciferol (Vitamin D3 -) 1,000 unit PO DAILY [facility] Last Admin: 02/10/17 11:32 Dose: 1,000 unit Cyanocobalamin (Vitamin B12 -) 1,000 mcg PO DAILY [facility] Last Admin: 02/10/17 11:32 Dose: 1,000 mcg Sodium Chloride (Normal Saline -) 1,000 mls @ 75 mls/hr IV ASDIR [facility] Last Admin: 02/10/17 01:55 Dose: 75 mls/hr Metronidazole (Flagyl -) 500 mg PO TID [facility] Last Admin: 02/10/17 14:06 Dose: 500 mg Multivitamins/Minerals (Theragran-M) 1 each PO DAILY [facility] Last Admin: 02/10/17 11:32 Dose: 1 each Ondansetron HCl (Zofran Injection) 4 mg IVPB Q6H PRN PRN Reason: NAUSEA Last Admin: 02/07/17 22:28 Dose: 4 mg Ranitidine HCl (Zantac -) 150 mg PO DAILY [facility] Last Admin: 02/10/17 11:32 Dose: 150 mg - Objective Vital Signs: Vital Signs Temperature 98.1 F 02/10/17 14:51 Pulse Rate 68 02/10/17 14:51 Respiratory Rate 18 02/10/17 11:29 Blood Pressure 142/63 02/10/17 11:29 O2 Sat by Pulse Oximetry (%) 98 02/08/17 09:00 Constitutional: Yes: Calm Eyes: Yes: Conjunctiva Clear HENT: Yes: Atraumatic Neck: Yes: Supple Cardiovascular: Yes: S1, S2 Respiratory: Yes: CTA Bilaterally Gastrointestinal: Yes: Soft Genitourinary: Yes: WNL Musculoskeletal: Yes: WNL Edema: No Neurological: Yes: Oriented Psychiatric: Yes: Oriented Labs: CBC, BMP 02/10/17 06:20 02/10/17 06:20 Problem List - Problems (1) Acute renal failure Code(s): N17.9 - ACUTE KIDNEY FAILURE, UNSPECIFIED Qualifiers: Acute renal failure type: unspecified Qualified Code(s): N17.9 - Acute kidney failure, unspecified (2) Vomiting Code(s): R11.10 - VOMITING, UNSPECIFIED Qualifiers: Vomiting type: unspecified Vomiting Intractability: non-intractable Nausea presence: with nausea Qualified Code(s): R11.2 - Nausea with vomiting, unspecified (3) Dehydration Code(s): E86.0 - DEHYDRATION (4) Hyperlipidemia Code(s): E78.5 - HYPERLIPIDEMIA, UNSPECIFIED (5) Hypertension Code(s): I10 - ESSENTIAL (PRIMARY) HYPERTENSION Assessment/Plan Current Medications Generic Name Dose Route Start Last Admin Trade Name Freq PRN Reason Stop Dose Admin Acetaminophen 650 mg 02/07/17 14:43 Tylenol - PO Q4H PRN FEVER OR PAIN Atenolol 50 mg 02/08/17 10:00 02/10/17 11:31 Tenormin - PO 50 mg DAILY [facility] Administration Atorvastatin Calcium 10 mg 02/07/17 22:00 02/09/17 22:00 Lipitor - PO 10 mg HS [facility] Administration Cholecalciferol 1,000 unit 02/08/17 10:00 02/10/17 11:32 Vitamin D3 - PO 1,000 unit DAILY [facility] Administration Cyanocobalamin 1,000 mcg 02/08/17 10:00 02/10/17 11:32 Vitamin B12 - PO 1,000 mcg DAILY [facility] Administration Sodium Chloride 1,000 mls @ 75 mls/hr 02/07/17 14:45 02/10/17 01:55 Normal Saline - IV 75 mls/hr ASDIR [facility] Administration Metronidazole 500 mg 02/09/17 22:00 02/10/17 14:06 Flagyl - PO 500 mg TID [facility]A Administration Multivitamins/Minerals 1 each 02/08/17 10:00 02/10/17 11:32 Theragran-M PO 1 each DAILY [facility] Administration Ondansetron HCl 4 mg 02/07/17 14:43 02/07/17 22:28 Zofran Injection IVPB 4 mg Q6H PRN Administration NAUSEA Ranitidine HCl 150 mg 02/08/17 10:00 02/10/17 11:32 Zantac - PO 150 mg DAILY [facility] Administration Impression 1. HUBER 2. abdominal pain 3. nausea and vomiting 4. HTN however pt is now hypotensive 5. hyperlipidemia 6. c.diff Plan - renal function continues to improve - will keep on fluids - will restart [place] in am - monitor BP - GI input appreciated - repeat labs in am - blood pressure is improving - likely etiology of HUBER is from pre-renal disease - will follow Dr Garsia
--- NOTE | 2017-02-10 17:31 | PN ---
Progress Note, Physician Chief Complaint: Mr Paez says he is doing well. Says he is no longer having diarrhea, stool is now formed. No cp, sob, n/v. Is tolerating diet without abdominal pain, is beginning to feel hungry. - Current Medication List Current Medications: Active Medications Acetaminophen (Tylenol -) 650 mg PO Q4H PRN PRN Reason: FEVER OR PAIN Atenolol (Tenormin -) 50 mg PO DAILY [facility] Last Admin: 02/10/17 11:31 Dose: 50 mg Atorvastatin Calcium (Lipitor -) 10 mg PO HS [facility] Last Admin: 02/09/17 22:00 Dose: 10 mg Cholecalciferol (Vitamin D3 -) 1,000 unit PO DAILY [facility] Last Admin: 02/10/17 11:32 Dose: 1,000 unit Cyanocobalamin (Vitamin B12 -) 1,000 mcg PO DAILY [facility] Last Admin: 02/10/17 11:32 Dose: 1,000 mcg Sodium Chloride (Normal Saline -) 1,000 mls @ 75 mls/hr IV ASDIR [facility] Last Admin: 02/10/17 01:55 Dose: 75 mls/hr Metronidazole (Flagyl -) 500 mg PO TID [facility] Last Admin: 02/10/17 14:06 Dose: 500 mg Multivitamins/Minerals (Theragran-M) 1 each PO DAILY [facility] Last Admin: 02/10/17 11:32 Dose: 1 each Ondansetron HCl (Zofran Injection) 4 mg IVPB Q6H PRN PRN Reason: NAUSEA Last Admin: 02/07/17 22:28 Dose: 4 mg Ranitidine HCl (Zantac -) 150 mg PO DAILY [facility] Last Admin: 02/10/17 11:32 Dose: 150 mg - Objective Vital Signs: Vital Signs Temperature 98.1 F 02/10/17 14:51 Pulse Rate 68 02/10/17 14:51 Respiratory Rate 18 02/10/17 11:29 Blood Pressure 142/63 02/10/17 11:29 O2 Sat by Pulse Oximetry (%) 98 02/08/17 09:00 Constitutional: Yes: No Distress, Calm, Thin Cardiovascular: Yes: Regular Rate and Rhythm. No: Gallop, Murmur, Rub Respiratory: Yes: Regular, CTA Bilaterally. No: Rales, Rhonchi, Wheezes Gastrointestinal: Yes: Normal Bowel Sounds, Soft. No: Distention, Tenderness Extremities: Yes: WNL Edema: No Labs: CBC, BMP 02/10/17 06:20 02/10/17 06:20 Problem List - Problems (1) Acute renal failure Code(s): N17.9 - ACUTE KIDNEY FAILURE, UNSPECIFIED Qualifiers: Acute renal failure type: unspecified Qualified Code(s): N17.9 - Acute kidney failure, unspecified (2) Vomiting Code(s): R11.10 - VOMITING, UNSPECIFIED Qualifiers: Vomiting type: unspecified Vomiting Intractability: non-intractable Nausea presence: with nausea Qualified Code(s): R11.2 - Nausea with vomiting, unspecified (3) Hyperlipidemia Code(s): E78.5 - HYPERLIPIDEMIA, UNSPECIFIED (4) Hypertension Code(s): I10 - ESSENTIAL (PRIMARY) HYPERTENSION (5) Diarrhea Code(s): R19.7 - DIARRHEA, UNSPECIFIED Assessment/Plan (1) Acute renal failure Assessment/Plan: -nephrology following -continue hydration -improving Code(s): N17.9 - ACUTE KIDNEY FAILURE, UNSPECIFIED Qualifiers: Acute renal failure type: unspecified Qualified Code(s): N17.9 - Acute kidney failure, unspecified (2) Vomiting Assessment/Plan: -resolved -awaiting GES study -CT scan reviewed and case d/w GI -will order surgery consult for possible partial small bowel obstruction Code(s): R11.10 - VOMITING, UNSPECIFIED Qualifiers: Vomiting type: unspecified Vomiting Intractability: non-intractable Nausea presence: with nausea Qualified Code(s): R11.2 - Nausea with vomiting, unspecified (3) Hyperlipidemia Assessment/Plan: -continue statin Code(s): E78.5 - HYPERLIPIDEMIA, UNSPECIFIED (4) Hypertension Assessment/Plan: -continue atenolol Code(s): I10 - ESSENTIAL (PRIMARY) HYPERTENSION (5) Diarrhea -c. diff antibody positive -flagyl started -diarrhea resolving
--- NOTE | 2017-02-10 18:53 | PN ---
GI Progress Note Subjective: No acute events No abdominal pain + formed BM today No diarrhea No vomiting CT scan reveals dilated bowel loops, ? ileus vs. PSBO did receive Morphine x 2 during admission - Objective Vital Signs: Vital Signs Temperature 98.1 F 02/10/17 14:51 Pulse Rate 68 02/10/17 14:51 Respiratory Rate 18 02/10/17 11:29 Blood Pressure 142/63 02/10/17 11:29 O2 Sat by Pulse Oximetry (%) 98 02/08/17 09:00 Constitutional: Calm Eyes: No: Sclera Icterus Cardiovascular: Yes: Regular Rate and Rhythm Respiratory: Yes: CTA Bilaterally ...Auscultate: Yes: Hyperactive Bowel Sounds ...Percussion: No: Tympanitic Labs: CBC, BMP 02/10/17 06:20 02/10/17 06:20 Laboratory Tests 02/09/17 06:52 Gastrin 20 Microbiology 02/08/17 19:00 Stool Clostridium difficile Antigen (MIAN) - + 02/08/17 19:00 Stool Clostridium difficile Toxin Assay - Neg 02/09/17 22:30 Stool Clostridium difficile (PCR) - Pending 02/09/17 06:00 Stool Norovirus GI - Pending 02/09/17 06:00 Stool Norovirus GII - Pending - ....Imaging Cat Scan: Report Reviewed, Image Reviewed Other: Pending (SGES) Problem List - Problems (1) Vomiting Assessment/Plan: No vomiting as of yet ? ileus, enteritis, ? PSBO on CT scan Gastrin level wnl SGES pending however he received morphine during admission and may impact the result Surgical consult to give input re: CT reading CT enterography could be considered when renal function permits Code(s): R11.10 - VOMITING, UNSPECIFIED Qualifiers: Vomiting type: unspecified Vomiting Intractability: non-intractable Nausea presence: with nausea Qualified Code(s): R11.2 - Nausea with vomiting, unspecified (2) Diarrhea Assessment/Plan: Resolved Awaiting stool studies Stool for O&P Code(s): R19.7 - DIARRHEA, UNSPECIFIED
[2017-02-10] MEDS: ATORVASTATIN CA 10 MG TABLET (FP) PO SCH (21:32)
[2017-02-11] MEDS: metroNIDAZOLE 250 MG TABLET PO SCH ×3 (06:30→21:47)
[2017-02-11 08:01] LABS: BASOPHIL 0.2 % (0-2.0); EOSINOPHIL 1.3 % (0-4.5); MCHC 33.4 g/dl (32.0-35.9); MEAN CELL VOLUME 92.8 fl (80-96); MEAN PLT VOLUME 7.7 fl (7.5-11.1); NEUTROPHILS 78.9 % (42.8-82.8); PLATELET COUNT 136 K/MM3 (134-434); RDW 13.6 % (11.9-15.9)
--- NOTE | 2017-02-11 08:13 | CONSULT ---
- Consultation REQUESTING PROVIDER: Phill CONSULT REQUEST: We have been asked to surgically evaluate this patient for management of possible sbo PCP:Andreas Gauthier MD HISTORY OF PRESENT ILLNESS:86 y/o W/male presented 02/07/17 w/n/v/abdo pain w/a h/o this in the past that was previously worked up; he has known sb diverticuli and diverticulosis; he presented w/ diarrhea as well and was found to have C. diff for which he is being txed; he has improved since admission; he is moving his bowels and tolerating a soft diet w/o nausea and or vomiting; he is passing flatus. His w/u and tx. to date have been reviewed. PMHx: reviewed PSHx: LIH repair Home Medications Medication Instructions Recorded Atenolol [Tenormin -] 50 mg PO DAILY 08/30/15 Cholecalciferol (Vitamin D3) 1,000 unit PO DAILY 08/30/15 [Vitamin D3] Cyanocobalamin (Vitamin B-12) 1,000 mcg PO DAILY 08/30/15 [Vitamin B12] Multivit-Min/FA/Lycopen/Lutein 1 each PO DAILY 08/30/15 [Centrum Silver Tablet] Quinapril HCl [Accupril -] 10 mg PO DAILY 08/30/15 Simvastatin [Zocor -] 20 mg PO HS 08/30/15 Ranitidine [Zantac -] 150 mg PO DAILY #30 tablet 09/04/15 Allergies Allergy/AdvReac Type Severity Reaction Status Date / Time No Known Allergies Allergy Verified 02/07/17 10:17 PHYSICAL EXAM: GENERAL: Awake, alert, and fully oriented, in no acute distress. ABDOMEN: Soft, nontender, not distended, normoactive bowel sounds, no guarding, no rebound, no masses. No organomegaly. No hernias. MUSCULOSKELETAL: Normal ROM at all joints. No bony deformities or tenderness. No CVA tenderness. UPPER EXTREMITIES: 2+ pulses, warm, well-perfused. No cyanosis. Cap refill <2 seconds. No peripheral edema. LOWER EXTREMITIES: 2+ pulses, warm, well-perfused. No calf tenderness. No peripheral edema. NEUROLOGICAL: Normal speech, gait not observed. PSYCH: Cooperative. Good eye contact. Appropriate mood and affect. SKIN: Warm, dry, normal turgor, no rashes or lesions noted. Vital Signs Temperature 98.9 F 02/11/17 06:00 Pulse Rate 69 02/11/17 06:00 Respiratory Rate 18 02/10/17 21:00 Blood Pressure 99/55 02/11/17 06:00 O2 Sat by Pulse Oximetry (%) 98 02/08/17 09:00 Lab Results WBC 6.0 K/mm3 (4.0-10.0) 02/11/17 07:04 RBC 3.50 M/mm3 (4.00-5.60) L 02/11/17 07:04 Hgb 10.8 GM/dL (11.7-16.9) L 02/11/17 07:04 Hct 32.5 % (35.4-49) L 02/11/17 07:04 MCV 92.8 fl (80-96) 02/11/17 07:04 MCHC 33.4 g/dl (32.0-35.9) 02/11/17 07:04 RDW 13.6 % (11.9-15.9) 02/11/17 07:04 Plt Count 136 K/MM3 (134-434) 02/11/17 07:04 Sodium 141 mmol/L (136-145) 02/10/17 06:20 Potassium 4.2 mmol/L (3.5-5.1) 02/10/17 06:20 Chloride 108 mmol/L (98-107) H 02/10/17 06:20 Carbon Dioxide 24 mmol/L (21-32) 02/10/17 06:20 Anion Gap 9 (8-16) 02/10/17 06:20 BUN 25 mg/dL (7-18) H D 02/10/17 06:20 Creatinine 1.5 mg/dL (0.7-1.3) H 02/10/17 06:20 Random Glucose 77 mg/dL (74-106) 02/10/17 06:20 Calcium 8.0 mg/dL (8.5-10.1) L 02/10/17 06:20 W/U to date reviewed; CT scan a/p reviewed IMP: resolved abdominal pain; C. diff colitis resolving and most likely ileus; clinically not even partial sbo. PLAN: Suggest continuing present tx. and advancing diet as tolerated; no surgical intervention indicated at this time. Fred Noriega MD FACS Visit type - Case Type Case Type: ED Admission - Emergency Emergency Visit: Yes ED Registration Date: 02/07/17 Care time: The patient presented to the Emergency Department on the above date and was hospitalized for further evaluation of their emergent condition. - New patient This patient is new to me today: Yes Date on this admission: 02/11/17 - Critical Care Critical Care patient: No
[2017-02-11 08:35] LABS: ANION GAP 7 (8-16); CALCIUM 8.1 mg/dL (8.5-10.1); CO2 25 mmol/L (21-32); CREATININE 1.5 mg/dL (0.7-1.3); GLUCOSE,RANDOM 82 mg/dL (74-106); MAGNESIUM 1.8 mg/dL (1.8-2.4); PHOSPHOROUS 2.2 mg/dL (2.5-4.9)
[2017-02-11] MEDS: CHOLECALCIFEROL (VITAMIN D3) 1,000 UNIT TABLET (FP) PO SCH (10:06)
[2017-02-11] MEDS: MULTIVITAMINS THER W-MINERALS COMBO TABLET (FP) PO SCH (10:06)
[2017-02-11] MEDS: CYANOCOBALAMIN 1,000 MCG TABLET (FP) PO SCH (10:06)
[2017-02-11] MEDS: ATENOLOL 50 MG TABLET (FP) PO SCH (10:06)
[2017-02-11] MEDS: SODIUM CHLORIDE 1,000 ML IV SCH (10:06)
--- NOTE | 2017-02-11 15:45 | PN ---
Progress Note, Physician History of Present Illness: Pt seen and examined at bedside. He says he tolerated a meal today. He denies diarrhea. - Current Medication List Current Medications: Active Medications Acetaminophen (Tylenol -) 650 mg PO Q4H PRN PRN Reason: FEVER OR PAIN Atenolol (Tenormin -) 50 mg PO DAILY [facility] Last Admin: 02/11/17 10:06 Dose: 50 mg Atorvastatin Calcium (Lipitor -) 10 mg PO HS [facility] Last Admin: 02/10/17 21:32 Dose: 10 mg Cholecalciferol (Vitamin D3 -) 1,000 unit PO DAILY [facility] Last Admin: 02/11/17 10:06 Dose: 1,000 unit Cyanocobalamin (Vitamin B12 -) 1,000 mcg PO DAILY [facility] Last Admin: 02/11/17 10:06 Dose: 1,000 mcg Sodium Chloride (Normal Saline -) 1,000 mls @ 75 mls/hr IV ASDIR [facility] Last Admin: 02/11/17 10:06 Dose: 75 mls/hr Metronidazole (Flagyl -) 500 mg PO TID [facility] Last Admin: 02/11/17 13:00 Dose: 500 mg Multivitamins/Minerals (Theragran-M) 1 each PO DAILY [facility] Last Admin: 02/11/17 10:06 Dose: 1 each Ondansetron HCl (Zofran Injection) 4 mg IVPB Q6H PRN PRN Reason: NAUSEA Last Admin: 02/07/17 22:28 Dose: 4 mg - Objective Vital Signs: Vital Signs Temperature 98.3 F 02/11/17 15:23 Pulse Rate 67 02/11/17 15:23 Respiratory Rate 18 02/11/17 08:00 Blood Pressure 127/71 02/11/17 15:23 O2 Sat by Pulse Oximetry (%) 98 02/08/17 09:00 Constitutional: Yes: Calm Eyes: Yes: Conjunctiva Clear HENT: Yes: Atraumatic Neck: Yes: Supple Cardiovascular: Yes: S1, S2 Respiratory: Yes: CTA Bilaterally Gastrointestinal: Yes: Soft Genitourinary: Yes: WNL Musculoskeletal: Yes: WNL Edema: No Neurological: Yes: Oriented Psychiatric: Yes: Oriented Labs: CBC, BMP 02/11/17 07:04 02/11/17 07:04 Problem List - Problems (1) Acute renal failure Code(s): N17.9 - ACUTE KIDNEY FAILURE, UNSPECIFIED Qualifiers: Acute renal failure type: unspecified Qualified Code(s): N17.9 - Acute kidney failure, unspecified (2) Vomiting Code(s): R11.10 - VOMITING, UNSPECIFIED Qualifiers: Vomiting type: unspecified Vomiting Intractability: non-intractable Nausea presence: with nausea Qualified Code(s): R11.2 - Nausea with vomiting, unspecified (3) Dehydration Code(s): E86.0 - DEHYDRATION (4) Hyperlipidemia Code(s): E78.5 - HYPERLIPIDEMIA, UNSPECIFIED (5) Hypertension Code(s): I10 - ESSENTIAL (PRIMARY) HYPERTENSION Assessment/Plan Current Medications Generic Name Dose Route Start Last Admin Trade Name Freq PRN Reason Stop Dose Admin Acetaminophen 650 mg 02/07/17 14:43 Tylenol - PO Q4H PRN FEVER OR PAIN Atenolol 50 mg 02/08/17 10:00 02/11/17 10:06 Tenormin - PO 50 mg DAILY MICAELA Administration Atorvastatin Calcium 10 mg 02/07/17 22:00 02/10/17 21:32 Lipitor - PO 10 mg HS MICAELA Administration Cholecalciferol 1,000 unit 02/08/17 10:00 02/11/17 10:06 Vitamin D3 - PO 1,000 unit DAILY MICAELA Administration Cyanocobalamin 1,000 mcg 02/08/17 10:00 02/11/17 10:06 Vitamin B12 - PO 1,000 mcg DAILY MICAELA Administration Sodium Chloride 1,000 mls @ 75 mls/hr 02/07/17 14:45 02/11/17 10:06 Normal Saline - IV 75 mls/hr ASDIR MICAELA Administration Metronidazole 500 mg 02/09/17 22:00 02/11/17 13:00 Flagyl - PO 500 mg TID MICAELA Administration Multivitamins/Minerals 1 each 02/08/17 10:00 02/11/17 10:06 Theragran-M PO 1 each DAILY [facility]ICA[facility]A Administration Ondansetron HCl 4 mg 02/07/17 14:43 02/07/17 22:28 Zofran Injection IVPB 4 mg Q6H PRN Administration NAUSEA Impression 1. HUBER 2. abdominal pain 3. nausea and vomiting 4. HTN however pt is now hypotensive 5. hyperlipidemia 6. c.diff Plan - cont with fluids - will not restart JERICHO as his blood pressure is low normal - repeat labs in am - GI input appreciated - likely etiology of HUBER is from pre-renal disease - will follow Dr Garsia
--- NOTE | 2017-02-11 15:54 | PN ---
GI Progress Note Subjective: GI F/U NOTE NO C/O AT ALL NO N/V/F/C/S NO ABD PAIN NO DIARRHEA PO FINE - Objective Vital Signs: Vital Signs Temperature 98.3 F 02/11/17 15:23 Pulse Rate 67 02/11/17 15:23 Respiratory Rate 18 02/11/17 08:00 Blood Pressure 127/71 02/11/17 15:23 O2 Sat by Pulse Oximetry (%) 98 02/08/17 09:00 Constitutional: Well Nourished (+BS/ SOFT/ NT NO MASSES), No Distress, Calm Labs: CBC, BMP 02/11/17 07:04 02/11/17 07:04 Assessment/Plan APPEARS CLINICALLY IMPROVED NO GI COMPLAINTS AT THIS TIME ALL LABS STABLE AND UNCHANGED CONTINUE TO ADVANCE DIET/ OBSERVE MD URIAH
[2017-02-11 20:21] VITALS: PULSE 66
[2017-02-11] MEDS: ATORVASTATIN CA 10 MG TABLET (FP) PO SCH (21:47)
[2017-02-12] MEDS: metroNIDAZOLE 250 MG TABLET PO SCH (05:49)
[2017-02-12 08:07] LABS: BASOPHIL 0.3 % (0-2.0); EOSINOPHIL 0.9 % (0-4.5); MCH 31.1 pg (25.7-33.7); MCHC 33.7 g/dl (32.0-35.9); MEAN CELL VOLUME 92.3 fl (80-96); MEAN PLT VOLUME 7.7 fl (7.5-11.1); NEUTROPHILS 70.5 % (42.8-82.8); PLATELET COUNT 173 K/MM3 (134-434); RDW 13.4 % (11.9-15.9); WHITE BLOOD COUNT 5.6 K/mm3 (4.0-10.0)
[2017-02-12 08:41] LABS: ALBUMIN 2.8 g/dl (3.4-5.0); ALK PHOS 73 U/L (45-117); ANION GAP 9 (8-16); BILIRUBIN,TOTAL 0.7 mg/dL (0.2-1.0); CALCIUM 8.2 mg/dL (8.5-10.1); CO2 26 mmol/L (21-32); CREATININE 1.4 mg/dL (0.7-1.3); GLUCOSE,RANDOM 95 mg/dL (74-106); SGOT/AST 20 U/L (15-37); SGPT/ALT 21 U/L (12-78); TOT PROT 5.2 g/dl (6.4-8.2)
[2017-02-12 09:01] VITALS: BP 124/59; TEMP 98.5
[2017-02-12] MEDS: SODIUM CHLORIDE 1,000 ML IV SCH (09:46)
[2017-02-12] MEDS: CYANOCOBALAMIN 1,000 MCG TABLET (FP) PO SCH (09:47)
[2017-02-12] MEDS: MULTIVITAMINS THER W-MINERALS COMBO TABLET (FP) PO SCH (09:47)
[2017-02-12] MEDS: CHOLECALCIFEROL (VITAMIN D3) 1,000 UNIT TABLET (FP) PO SCH (09:47)
[2017-02-12] MEDS: ATENOLOL 50 MG TABLET (FP) PO SCH (09:47)
--- NOTE | 2017-02-12 10:23 | PN ---
Progress Note, Physician Chief Complaint: C/o less nausea, denies any diarrhea or fever diet - Current Medication List Current Medications: Active Medications Acetaminophen (Tylenol -) 650 mg PO Q4H PRN PRN Reason: FEVER OR PAIN Atenolol (Tenormin -) 50 mg PO DAILY [facility] Last Admin: 02/12/17 09:47 Dose: 50 mg Atorvastatin Calcium (Lipitor -) 10 mg PO HS [facility] Last Admin: 02/11/17 21:47 Dose: 10 mg Cholecalciferol (Vitamin D3 -) 1,000 unit PO DAILY [facility] Last Admin: 02/12/17 09:47 Dose: 1,000 unit Cyanocobalamin (Vitamin B12 -) 1,000 mcg PO DAILY [facility] Last Admin: 02/12/17 09:47 Dose: 1,000 mcg Sodium Chloride (Normal Saline -) 1,000 mls @ 75 mls/hr IV ASDIR [facility] Last Admin: 02/12/17 09:46 Dose: 75 mls/hr Metronidazole (Flagyl -) 500 mg PO TID [facility] Last Admin: 02/12/17 05:49 Dose: 500 mg Multivitamins/Minerals (Theragran-M) 1 each PO DAILY [facility] Last Admin: 02/12/17 09:47 Dose: 1 each Ondansetron HCl (Zofran Injection) 4 mg IVPB Q6H PRN PRN Reason: NAUSEA Last Admin: 02/07/17 22:28 Dose: 4 mg - Objective Vital Signs: Vital Signs Temperature 98.5 F 02/12/17 09:00 Pulse Rate 66 02/12/17 09:00 Respiratory Rate 18 02/12/17 09:00 Blood Pressure 124/59 02/12/17 09:00 O2 Sat by Pulse Oximetry (%) 98 02/08/17 09:00 P Exam: General: Elderly man comfortable, not in acute distress, feels improved HEENT: Mm moist, anemia, PERRLA EOMI NECK: No JVD No Bruit CHEST: B/L minimal no crepts CVS: S1S2 R no m/g/r ABD: No Distention, Non tender Bs + EXT; No edema feet, no calf Tenderness, Pulses + DRIP BOX TENDER: AOX3 non focal Labs: CBC, BMP Problem List - Problems (1) C. difficile colitis Assessment/Plan: present with nausea, vomiting abd pain with ileus , Stool C Diff + improving on Po Metronidazole, Gastric emptying result is pending. will advanc diet. Code(s): A04.7 - ENTEROCOLITIS DUE TO CLOSTRIDIUM DIFFICILE (2) Diarrhea Assessment/Plan: due to C diff resolving with Po abx Code(s): R19.7 - DIARRHEA, UNSPECIFIED (3) Acute renal failure Assessment/Plan: Due to dehydration, Improving on IV Hydration. Code(s): N17.9 - ACUTE KIDNEY FAILURE, UNSPECIFIED Qualifiers: Acute renal failure type: unspecified Qualified Code(s): N17.9 - Acute kidney failure, unspecified (4) Vomiting Assessment/Plan: Improved advance diet and cont Zofran. Code(s): R11.10 - VOMITING, UNSPECIFIED Qualifiers: Vomiting type: unspecified Vomiting Intractability: non-intractable Nausea presence: with nausea Qualified Code(s): R11.2 - Nausea with vomiting, unspecified
--- NOTE | 2017-02-12 10:23 | DS ---
Physical Examination Vital Signs: Vital Signs Temperature 98.5 F 02/12/17 09:00 Pulse Rate 66 02/12/17 09:00 Respiratory Rate 18 02/12/17 09:00 Blood Pressure 124/59 02/12/17 09:00 O2 Sat by Pulse Oximetry (%) 98 02/08/17 09:00 Constitutional: Yes: No Distress, Calm Eyes: No: Sclera Icterus Cardiovascular: Yes: Regular Rate and Rhythm Respiratory: Yes: CTA Bilaterally Gastrointestinal: Yes: Soft. No: Tenderness Edema: No Neurological: Yes: Alert, Oriented Labs: CBC, BMP 02/12/17 06:40 02/12/17 06:40 Discharge Summary Reason For Visit: ACUTE RENAL FAILURE,VOMITING Hospital Course: Please refer to daily notes Seen by GI and general surgery..Gastric Emptying scan report still pending C Diff toxin negative but antibody positive Further testing pending Follow up as outpatient Complete metronidazole course Condition: Good - Instructions Diet, Activity, Other Instructions: As tolerated Referrals: Tobin Hatfield MD [Primary Care Provider] - Disposition: HOME - Home Medications Comprehensive Discharge Medication List: Ambulatory Orders Atenolol [Tenormin -] 50 mg PO DAILY 08/30/15 Cholecalciferol (Vitamin D3) [Vitamin D3] 1,000 unit PO DAILY 08/30/15 Cyanocobalamin (Vitamin B-12) [Vitamin B12] 1,000 mcg PO DAILY 08/30/15 Multivit-Min/FA/Lycopen/Lutein [Centrum Silver Tablet] 1 each PO DAILY 08/30/15 Quinapril HCl [Accupril -] 10 mg PO DAILY 08/30/15 Simvastatin [Zocor -] 20 mg PO HS 08/30/15 Ranitidine [Zantac -] 150 mg PO DAILY #30 tablet 09/04/15 Metronidazole [Flagyl -] 500 mg PO TID #12 tablet 02/12/17
[2017-02-16 09:05] LABS: PARASITES CONCENTRATED SMEAR FINAL RESULT
== END 2017-02-12 10:48 | disposition home or self-care (01) | DRG 683 ==
LOC: JER 10:13 → JERBED 13:05 → J6S 02-08 00:26
PROVIDERS: ADMIT Internal Medicine; ATTEND Internal Medicine
DX: N17.9 Acute kidney failure, unspecified (principal); A04.7 Enterocolitis due to Clostridium difficile; K56.7 Ileus, unspecified; I10 Essential (primary) hypertension; E78.5 Hyperlipidemia, unspecified; E86.0 Dehydration; I95.9 Hypotension, unspecified; R11.2 Nausea with vomiting, unspecified
CPT/HCPCS: 36415; 71010-TC; 74000-TC; 74176-TC; 76775-TC; 76856-TC; 78264-TC; 80048; 80053; 81003; 82436; 82570; 82941; 83690; 83735; 84100; 84133; 84156; 84300; 85025; 87045; 87046; 87177; 87209; 87324; 87449; 87493; 87798; 93005; 93010; 99284-25; A9541; Q9967

== ENCOUNTER 2017-03-28 14:41 | Emergency (ER) | payer OTHER, BC ==
[2017-03-28 14:53] VITALS: BP 161/76; PULSE 61; TEMP 98; BMI 23.0
[2017-03-28] MEDS ORDERED: SODIUM CHLORIDE 1,000 ML IV SCH (16:45)
[2017-03-28] MEDS ORDERED: ONDANSETRON 4 MG/2 ML VIAL IVPB ONE (16:45)
--- NOTE | 2017-03-28 16:45 | PDOC ---
History of Present Illness - General History Source: Patient Exam Limitations: No Limitations - History of Present Illness Initial Comments: 03/28/17 16:48 The patient is a 86 year old male with a significant past medical history of HTN , HLD, chronic GI issues and diverticulosis who presents to the ED with complaints of abdominal pain since earlier today. Patient reports a gradual onset of lower quadrant pain at 11 am. He state the lower quadrant pain is constant, right lower quadrant worse than left, with intermittent spasms. He reports nausea and chills associated with present symptoms. Patient was recently seen in the ED on 02/07/17 for similar symptoms and abdominal CT showed very slow peristaltic movement. He reports 3 episodes of similar symptoms since August 2016. Denies vomiting or diarrhea. Denies fever. Denies chest pain or shortness of breath. Denies changes in urinary output. Denies back pain or flank pain. Denies any other symptoms. Surgical hx: Inguinal hernia repair PMD: Dr. Hatfield GI: Dr. Evans <Rikki Ramirez - Last Filed: 03/28/17 20:36> <Rabia Childress - Last Filed: 03/29/17 01:35> - General Chief Complaint: Pain Stated Complaint: ABD PAIN Past History <Rikki Ramirez - Last Filed: 03/28/17 20:36> - Past Medical History GI Disorders: Yes (DIVERTICULOSIS, FREQUENT N/V) HTN: Yes Hypercholesterolemia: Yes - Surgical History Abdominal Surgery: Yes (lt ing HERNIA REPAIR) Orthopedic Surgery: Yes (2004 right ankle sx with screws) - Immunization History Immunization Up to Date: Yes - Psycho/Social/Smoking Cessation Hx Anxiety: No Suicidal Ideation: No Smoking History: Never smoked Have you smoked in the past 12 months: No Information on smoking cessation initiated: No Hx Alcohol Use: No Drug/Substance Use Hx: No Substance Use Type: None Hx Substance Use Treatment: No <Rabia Childress - Last Filed: 03/29/17 01:35> - Past Medical History Allergies/Adverse Reactions: Allergies Allergy/AdvReac Type Severity Reaction Status Date / Time No Known Allergies Allergy Verified 03/28/17 14:47 Home Medications: Ambulatory Orders Atenolol [Tenormin -] 50 mg PO DAILY 08/30/15 Cholecalciferol (Vitamin D3) [Vitamin D3] 1,000 unit PO DAILY 08/30/15 Cyanocobalamin (Vitamin B-12) [Vitamin B12] 1,000 mcg PO DAILY 08/30/15 Multivit-Min/FA/Lycopen/Lutein [Centrum Silver Tablet] 1 each PO DAILY 08/30/15 Quinapril HCl [Accupril -] 10 mg PO DAILY 08/30/15 Simvastatin [Zocor -] 20 mg PO HS 08/30/15 Ranitidine [Zantac -] 150 mg PO DAILY #30 tablet 09/04/15 Review of Systems - Review of Systems Able to Perform ROS?: Yes Comments:: 03/28/17 16:49 CONSTITUTIONAL: + chills Absent: fever, chills, diaphoresis, generalized weakness, malaise, loss of appetite HEENT: Absent: rhinorrhea, nasal congestion, throat pain, throat swelling, difficulty swallowing, mouth swelling, ear pain, eye pain, visual Changes CARDIOVASCULAR: Absent: chest pain, syncope, palpitations, irregular heart rate, lightheadedness , peripheral edema RESPIRATORY: Absent: cough, shortness of breath, dyspnea with exertion, orthopnea, wheezing, stridor, hemoptysis GASTROINTESTINAL: + abdominal pain, nausea Absent: abdominal distension, vomiting, diarrhea, constipation, melena, hematochezia GENITOURINARY: Absent: dysuria, frequency, urgency, hesitancy, hematuria, flank pain, genital pain MUSCULOSKELETAL: Absent: myalgia, arthralgia, joint swelling SKIN: Absent: rash, itching, pallor HEMATOLOGIC/IMMUNOLOGIC: Absent: easy bleeding, easy bruising, lymphadenopathy, frequent infections ENDOCRINE: Absent: unexplained weight gain, unexplained weight loss, heat intolerance, cold intolerance NEUROLOGIC: Absent: headache, focal weakness or paresthesias, dizziness, unsteady gait, seizure, mental status changes, bladder or bowel incontinence PSYCHIATRIC: Absent: anxiety, depression, suicidal or homicidal ideation, hallucinations. All Other Systems: Reviewed and Negative <Rikki Ramirez - Last Filed: 03/28/17 20:36> *Physical Exam - Vital Signs Last Vital Signs Temp Pulse Resp BP Pulse Ox 98.0 F 61 16 161/76 100 03/28/17 14:48 03/28/17 14:48 03/28/17 14:48 03/28/17 14:48 03/28/17 14:48 - Physical Exam Comments: 03/28/17 16:49 GENERAL: Well developed, well nourished. Awake and alert. No acute distress. HEENT: Normocephalic, atraumatic. PERRLA, EOMI. No conjunctival pallor. Sclera are non- icteric. Moist mucous membranes. Oropharynx is clear. NECK: Supple. Full ROM. No JVD. Carotid pulses 2+ and symmetric, without bruits. No thyromegaly. NCo lymphadenopathy. CARDIOVASCULAR: Regular rate and rhythm. No murmurs, rubs, or gallops. Distal pulses are 2+ and symmetric. PULMONARY: No evidence of respiratory distress. Lungs clear to auscultation bilaterally. No wheezing, rales or rhonchi. ABDOMINAL:+ Lower quadrant tenderness, right greater than left. Hyperactive bowel sounds. Soft. Non-distended. No rebound or guarding. No organomegaly. MUSCULOSKELETAL Normal range of motion at all joints. No bony deformities or tenderness. No CVA tenderness. EXTREMITIES: No cyanosis. No clubbing. No edema. No calf tenderness. SKIN: Warm and dry. Normal capillary refill. No rashes. No jaundice. NEUROLOGICAL: Alert, awake, appropriate. Cranial nerves 2-12 intact. No deficits to light touch and temperature in face, upper extremities and lower extremities. No motor deficits in the in face, upper extremities and lower extremities. Normoreflexic in the upper and lower extremities. Normal speech. Toes are down- going bilaterally. Gait is normal without ataxia. PSYCHIATRIC: Cooperative. Good eye contact. Appropriate mood and affect. <Rikki Ramirez - Last Filed: 03/28/17 20:36> - Vital Signs Last Vital Signs Temp Pulse Resp BP Pulse Ox 98.0 F 61 16 161/76 100 03/28/17 14:48 03/28/17 14:48 03/28/17 14:48 03/28/17 14:48 03/28/17 14:48 <Rabia Childress - Last Filed: 03/29/17 01:35> ED Treatment Course - LABORATORY CBC & Chemistry Diagram: 03/28/17 16:48 03/28/17 16:45 - RADIOLOGY Radiograph Interpretation: 03/28/17 19:06 RAD/CHEST X-RAY PORTABLE Impression: No significant interval change or acute cardiopulmonary disease is present. Reported by: Zach Pederson <Rikki Ramirez - Last Filed: 03/28/17 20:36> - LABORATORY CBC & Chemistry Diagram: 03/28/17 16:48 03/28/17 16:45 <Rabia Childress - Last Filed: 03/29/17 01:35> Medical Decision Making - Medical Decision Making 03/28/17 20:[address] Gauthier at 20:15 <Rikki Ramirez - Last Filed: 03/28/17 20:36> - Medical Decision Making 03/28/17 17:53 86-year-old male presents with abdominal pain since 11 PM today. The pain is severe and persistent. It is worse in his right lower quadrant. On exam, he has hyperactive bowel sounds. He denies any fever or diarrhea but states he's had waves of nausea and he feels chilled -He's had 3 bouts of this severe pain since August and has been has had CAT scan that didn't show anything. 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 Evans - Dr. Benavidez Patient has been seen by GI and had a study done February 10 that showed delayed gastric emptying, consistent with gastroparesis. He was supposed to take Zantac daily. He also had C. difficile toxin study that was negative 03/28/17 18:03 03/29/17 01:34 -labs essentailly unremarkable pt's symptosm resolved. spoke with Dr Garibay and pt discharged home <Rabia Childress - Last Filed: 03/29/17 01:35> *DC/Admit/Observation/Transfer - Attestations Scribe Attestion: 03/28/17 16:49 Documentation prepared by Rikki Ramirez, acting as medical staff director for Rabia Childress MD <Rikki Ramirez - Last Filed: 03/28/17 20:36> <Rabia Childress - Last Filed: 03/29/17 01:35> Diagnosis at time of Disposition: Gastroparesis, Renal insufficiency - Discharge Dispostion Disposition: HOME Condition at time of disposition: Stable - Referrals Referrals: Tobin Hatfield MD [Primary Care Provider] - - Patient Instructions Printed Discharge Instructions: DI for Gastroparesis Additional Instructions: please followup with GI and your regular physician
[2017-03-28] MEDS ORDERED: HYDROmorphone HCL CARPU-JECT 1 MG/1 ML DISP.SYRIN IVPUSH ONE (16:46)
[2017-03-28] MEDS ORDERED: HYDROmorphone HCL CARPU-JECT 1 MG/1 ML DISP.SYRIN ONE (17:03)
[2017-03-28] MEDS ORDERED: ONDANSETRON 4 MG/2 ML VIAL ONE (17:04)
[2017-03-28 17:08] LABS: BASOPHIL 0.4 % (0-2.0); EOSINOPHIL 0.3 % (0-4.5); MCH 30.5 pg (25.7-33.7); MCHC 32.9 g/dl (32.0-35.9); MEAN CELL VOLUME 92.8 fl (80-96); MEAN PLT VOLUME 8.2 fl (7.5-11.1); NEUTROPHILS 67.8 % (42.8-82.8); PLATELET COUNT 218 K/MM3 (134-434); RDW 13.5 % (11.9-15.9); WHITE BLOOD COUNT 6.9 K/mm3 (4.0-10.0)
[2017-03-28 17:24] LABS: INR 1.12 (0.82-1.09); PROTHROMBIN TIME (PATIENT) 12.4 SEC (9.98-11.88)
[2017-03-28 17:34] LABS: CPK 99 IU/L (39-308); TROPONIN I < 0.02 ng/ml (0.00-0.05)
[2017-03-28 17:49] LABS: ALBUMIN 4.2 g/dl (3.4-5.0); ALK PHOS 100 U/L (45-117); ANION GAP 13 (8-16); BILIRUBIN,TOTAL 0.7 mg/dL (0.2-1.0); CALCIUM 10.4 mg/dL (8.5-10.1); CO2 21 mmol/L (21-32); CREATININE 1.7 mg/dL (0.7-1.3); GLUCOSE,RANDOM 101 mg/dL (74-106); SGOT/AST 23 U/L (15-37); SGPT/ALT 25 U/L (12-78); TOT PROT 7.1 g/dl (6.4-8.2)
[2017-03-28] MEDS ORDERED: RANITIDINE HCL 150 MG TABLET (FP) PO ONE (18:02)
[2017-03-28] MEDS ORDERED: RANITIDINE HCL 150 MG TABLET (FP) ONE (18:16)
--- NOTE | 2017-03-29 13:22 | EKG ---
Test Reason : Blood Pressure : / mmHG Vent. Rate : 059 BPM Atrial Rate : 059 BPM P-R Int : 172 ms QRS Dur : 088 ms QT Int : 508 ms P-R-T Axes : 076 -08 037 degrees QTc Int : 502 ms SINUS BRADYCARDIA WITH PREMATURE SUPRAVENTRICULAR COMPLEXES PROLONGED QT ABNORMAL ECG WHEN COMPARED WITH ECG OF 07-FEB-2017 15:39, PREMATURE SUPRAVENTRICULAR COMPLEXES ARE NOW PRESENT CORRELATE CLINICALLY Confirmed by MT NAVARRO MD ([id number]) on 03/29/2017 1:22:23 PM Referred By: Confirmed By:MT NAVARRO MD
== END 2017-03-28 20:44 | disposition home or self-care (01) ==
LOC: JER 14:41
PROC: 3E0337Z Introduction of Electrolytic and Water Balance Substance into Peripheral Vein, Percutaneous Approach (ICD-10-PCS; principal; 2017-03-28)
PROC: 3E033NZ Introduction of Analgesics, Hypnotics, Sedatives into Peripheral Vein, Percutaneous Approach (ICD-10-PCS; 2017-03-28)
PROC: 3E033GC Introduction of Other Therapeutic Substance into Peripheral Vein, Percutaneous Approach (ICD-10-PCS; 2017-03-28)
DX: K31.84 Gastroparesis (principal); I12.9 Hypertensive chronic kidney disease with stage 1 through stage 4 chronic kidney disease, or unspecified chronic kidney disease; N18.9 Chronic kidney disease, unspecified
CPT/HCPCS: 36415; 71010-TC; 80053; 83605; 83690; 84484; 85025; 85610; 93005; 93010; 96361; 96374; 96375; 99283-25

== ENCOUNTER 2021-05-03 10:46 | Observation (INO) | payer OTHER, BC ==
[2021-05-03 11:27] LABS: BASO % 3.7 % (0-2.0); EOS % 0.7 % (0-4.5); HEMATOCRIT 40.8 % (35.4-49); HEMOGLOBIN 13.4 GM/dl (11.7-16.9); LYMPH % 16.1 % (8-40); MCH 31.9 pg (25.7-33.7); MCHC 32.8 g/dl (32.0-35.9); MEAN CELL VOLUME 97.3 fl (80-96); MEAN PLT VOLUME 7.8 fl (7.5-11.1); MONO % 7.3 % (3.8-10.2); NEUT % 72.2 % (42.8-82.8); PLATELET COUNT 179 10^3/uL (134-434); RBC 4.19 M/mm3 (4.00-5.60); RDW 13.4 % (11.9-15.9); WHITE BLOOD COUNT 4.6 K/mm3 (4.0-10.8)
[2021-05-03] MEDS ORDERED: SODIUM CHLORIDE 0.9% 500 ML INFUS.BAG IV ONE (11:36)
[2021-05-03 11:47] LABS: ALBUMIN 3.8 g/dl (3.4-5.0); ALK PHOS 83 U/L (45-117); ANION GAP 7 MMOL/L (8-16); CALCIUM 8.7 mg/dl (8.5-10); CHLORIDE 106 mmol/L (98-107); CO2 22 mmol/L (21-32); CREATININE 1.5 mg/dl (0.55-1.3); GLUCOSE,RANDOM 147 mg/dl (74-106); MAGNESIUM 1.8 mg/dL (1.8-2.4); SGOT/AST 28 U/L (15-37); SGPT/ALT 26 U/L (13-61); SODIUM 135 mmol/L (136-145); TOT PROT 6.3 g/dl (6.4-8.2)
[2021-05-03] MEDS ORDERED: ACETAMINOPHEN 325 MG TABLET (FP) PO PRN (14:20)
[2021-05-03] MEDS ORDERED: SODIUM CHLORIDE 1,000 ML IV SCH (16:00)
[2021-05-03] MEDS ORDERED: hydrALAZINE HCL 20 MG/ML VIAL IVPUSH PRN (16:59)
[2021-05-03 17:10] VITALS: BMI 20.5
[2021-05-03] MEDS: ATORVASTATIN CA 10 MG TABLET (FP) PO SCH (21:09)
[2021-05-03] MEDS: HEPARIN NA (PORCINE) 5,000 UNITS/ML 1ML VIAL SQ SCH (21:13)
[2021-05-04 09:10] LABS: HEMATOCRIT 39.4 % (35.4-49); HEMOGLOBIN 12.7 GM/dl (11.7-16.9); MCH 30.8 pg (25.7-33.7); MCHC 32.2 g/dl (32.0-35.9); MEAN CELL VOLUME 95.5 fl (80-96); MEAN PLT VOLUME 8.3 fl (7.5-11.1); PLATELET COUNT 168 10^3/uL (134-434); RBC 4.12 M/mm3 (4.00-5.60); RDW 12.8 % (11.9-15.9); WHITE BLOOD COUNT 4.9 K/mm3 (4.0-10.8)
[2021-05-04 09:19] LABS: ANION GAP 2 MMOL/L (8-16); CALCIUM 8.8 mg/dl (8.5-10); CHLORIDE 109 mmol/L (98-107); CO2 28 mmol/L (21-32); CREATININE 1.4 mg/dl (0.55-1.3); GLUCOSE,RANDOM 83 mg/dl (74-106); MAGNESIUM 1.7 mg/dL (1.8-2.4); PHOSPHOROUS 2.8 mg/dl (2.5-4.9); SODIUM 139 mmol/L (136-145)
[2021-05-04] MEDS: CHOLECALCIFEROL (VIT D3) 1,000 UNIT (25 MCG) TABLET PO SCH (09:40)
[2021-05-04] MEDS: FAMOTIDINE 20 MG TABLET PO SCH (09:40)
[2021-05-04] MEDS: MULTIVITAMINS (DAILY MVI) TABLET (FP) PO SCH (09:40)
[2021-05-04] MEDS: HEPARIN NA (PORCINE) 5,000 UNITS/ML 1ML VIAL SQ SCH ×2 (09:40→21:28)
[2021-05-04] MEDS: ATENOLOL 25 MG TABLET (FP) PO SCH (09:40)
[2021-05-04] MEDS: CYANOCOBALAMIN 1,000 MCG TABLET (FP) PO SCH (09:40)
[2021-05-04] MEDS ORDERED: QUINAPRIL HCL 10 MG TABLET PO SCH (10:00)
[2021-05-04] MEDS: ATORVASTATIN CA 10 MG TABLET (FP) PO SCH (21:26)
[2021-05-05 06:18] VITALS: TEMP 98
[2021-05-05] MEDS ORDERED: QUINAPRIL HCL 5 MG TABLET PO SCH (10:00)
[2021-05-05] MEDS: MULTIVITAMINS (DAILY MVI) TABLET (FP) PO SCH (10:05)
[2021-05-05] MEDS: FAMOTIDINE 20 MG TABLET PO SCH (10:05)
[2021-05-05] MEDS: CHOLECALCIFEROL (VIT D3) 1,000 UNIT (25 MCG) TABLET PO SCH (10:05)
[2021-05-05] MEDS: CYANOCOBALAMIN 1,000 MCG TABLET (FP) PO SCH (10:05)
[2021-05-05] MEDS: ATENOLOL 25 MG TABLET (FP) PO SCH (10:06)
[2021-05-05] MEDS: HEPARIN NA (PORCINE) 5,000 UNITS/ML 1ML VIAL SQ SCH (10:06)
[2021-05-05 14:11] VITALS: BP 136/71; PULSE 78
== END 2021-05-05 14:11 | disposition home or self-care (01) ==
LOC: FER 10:46 → FM/S 13:25
PROVIDERS: ADMIT Internal Medicine; ATTEND Nurse Practitioner Acute Care
PROC: 3E023GC Introduction of Other Therapeutic Substance into Muscle, Percutaneous Approach (ICD-10-PCS; principal; 2021-05-03)
PROC: 3E0337Z Introduction of Electrolytic and Water Balance Substance into Peripheral Vein, Percutaneous Approach (ICD-10-PCS; 2021-05-03)
DX: R26.2 Difficulty in walking, not elsewhere classified (principal); I12.9 Hypertensive chronic kidney disease with stage 1 through stage 4 chronic kidney disease, or unspecified chronic kidney disease; N18.9 Chronic kidney disease, unspecified; E78.5 Hyperlipidemia, unspecified; K57.90 Diverticulosis of intestine, part unspecified, without perforation or abscess without bleeding; R53.1 Weakness; R42 Dizziness and giddiness
CPT/HCPCS: 36415; 70450-TC; 71045-TC-FY; 80048; 80053; 81003; 82550; 82962; 83735; 84100; 84439; 84443; 84481; 84484; 85025; 85027; 87086; 93005; 93880-TC; 96360; 96372; 97116-GP; 97162-GP; 99285-25; C9803; G0378; J1644; U0003; U0005